=== PATIENT | male | born 1950 | race Caucasian/White ===

== ENCOUNTER 2017-02-18 15:53 | Emergency (ER) | payer MEDICARE ==
[2017-02-18 17:11] VITALS: BP 110/73
--- NOTE | 2017-02-18 17:11 | UC ---
Skin Complaint HPI - HPI Summary HPI Summary: Pt presents with c/o of URI like c/o of cough, nasal congestion and generalized malaise X 1 week. 2. c/o of tender rash on right upper thigh and right lower back that began 3 days ago. - History of Current Complaint Chief Complaint: UCSkin Time Seen by Provider: 02/18/17 16:41 Stated Complaint: COUGH,FATIGUE,SKIN COMPLAINT Hx Obtained From: Patient Onset/Duration: Gradual Onset, Lasting Days, Still Present, Worse Since - onset Skin Exposure Onset/Duration: Days Ago Timing: Constant Onset Severity: Mild Current Severity: Mild Location: Discrete - right upper thigh and lower back Character: Redness, Painful Aggravating Factor(s): Touch Alleviating Factor(s): Unknown Associated Signs & Symptoms: Positive: Rash, Tenderness - Allergy/Home Medications Allergies/Adverse Reactions: Allergies Allergy/AdvReac Type Severity Reaction Status Date / Time Codeine Allergy Intermediate FEELS VERY Verified 02/18/17 16:20 HOT, FLUSHING Penicillins Allergy Intermediate Rash Verified 02/18/17 16:20 Home Medications: Home Medications Magnesium Oxide TAB* [MagOx 400 TAB*] 400 mg PO BID 02/18/17 [History Confirmed 02/18/17] Review of Systems Constitutional: Negative Skin: Rash Eyes: Negative ENT: Other - nasal congestion Respiratory: Cough Cardiovascular: Negative Gastrointestinal: Negative Genitourinary: Negative Motor: Negative Neurovascular: Negative Musculoskeletal: Negative Neurological: Negative Psychological: Negative Is Patient Immunocompromised?: No All Other Systems Reviewed And Are Negative: Yes PMH/Surg Hx/FS Hx/Imm Hx Previously Healthy: Yes - Surgical History Surgical History: Yes Surgery Procedure, Year, and Place: Bi-lat KNEE, SHOULDER - Family History Known Family History: Positive: Cardiac Disease - Social History Occupation: Retired Lives: With Family Alcohol Use: None Substance Use Type: None Smoking Status (MU): Never Smoked Tobacco Have You Smoked in the Last Year: No - Immunization History Most Recent Influenza Vaccination: January 2017 Physical Exam Triage Information Reviewed: Yes Appearance: Well-Appearing Vital Signs: Initial Vital Signs Temp 98.6 F 02/18/17 16:17 Pulse 88 02/18/17 16:17 Resp 16 02/18/17 16:17 BP 110/73 02/18/17 16:17 Pulse Ox 98 02/18/17 16:17 Vital Signs Reviewed: Yes Eye Exam: Normal ENT Exam: Normal Dental Exam: Other Dental: Positive: Other: - multiple missing teeth Neck exam: Normal Respiratory: Positive: No respiratory distress Cardiovascular Exam: Normal Musculoskeletal Exam: Normal Neurological Exam: Normal Psychological Exam: Normal Skin Exam: Other - erythematous rash upper right thigh and lower back, pt c/o mild tenderness during exam, pt reports blisters that have erupted and drained prior to arrival. Course/Dx - Differential Diagnoses - Skin Complaint Differential Diagnoses: Allergic Reaction, Contact Dermatitis, Local Allergic Reaction, Varicella Zoster - Diagnoses Provider Diagnoses: shingles. URI Discharge - Discharge Plan Condition: Stable Disposition: HOME Prescriptions: ValACYclovir (*) [Valtrex 1 GM(*)] 1 gm PO Q8H #21 tab Patient Education Materials: Shingles (ED) Referrals: Porter Barrios MD [Primary Care Provider] - If Needed
== END 2017-02-18 17:17 | disposition home or self-care (01) ==
LOC: UCCORT 15:53
DX: J06.9 Acute upper respiratory infection, unspecified (principal); B02.9 Zoster without complications; Z88.0 Allergy status to penicillin; Z88.5 Allergy status to narcotic agent
CPT/HCPCS: 99212; G0463

== ENCOUNTER 2017-03-20 19:22 | Emergency (ER) | payer MEDICARE ==
--- OUTSIDE RECORDS SUMMARY | 2017-03-20 19:35 | XMS REPORT ---
:1950 External Reference #:[id number] Author Organization [facility] 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 Active Onset: 05/06/2016 Joint ankylosis of the shoulder Jose Castilol M.D. Active region Onset: 02/10/2016 Pain in calf KELLY Gant Active Onset: 01/22/2016 Full thickness rotator cuff tear Jose Castillo M.D. Active Onset: 01/06/2016 Shoulder joint pain Jose Castillo M.D. Active Onset: 11/27/2014 Disorder of bursa of shoulder Jose Castillo M.D. Active region Onset: 09/26/2012 Localized, primary osteoarthritis Isai Amin M.D., Active FACS Onset: 01/07/2012 Type II diabetes mellitus Porter Barrios MD Active uncontrolled Onset: 12/30/2011 Type 2 diabetes mellitus Active Onset: 01/07/2012 Gastroesophageal reflux disease Porter Barrios MD Active Onset: 01/07/2012 Essential hypertension Porter Barrios MD Active Onset: 01/07/2012 Hyperlipidemia Porter Barrios MD Active Family History Date Family Member(s) Problem(s) Comments Father Diabetes Father Hypertension Mother Diabetes Mother Hypertension Mother Atrial Fibrillation Mother Pacemaker First Brother Diabetes Social History Type Date Description Comments Lives With Roommate Sister Diet Patient follows no dietary restrictions Occupation Disabled Cigarette Use Never Smoked Cigarettes ETOH Use Denies alcohol use Recreational Drug Use Denies Drug Use Smoking Patient has never smoked Daily Caffeine Consumes on average 4 sodas per day General Hx Text Patient lives as a female, prefers to be called Nathalie Allergies, Adverse Reactions, Alerts Date Description Reaction Status Severity Comments 09/26/2012 Codeine active 09/26/2012 Penicillin active Medications Medication Date Status Form Strength Qnty SIG Indications Ordering Provider Simvastatin 07/12 Active Tablets 40mg 90tab 1 by mouth Ring, s every day MD Porter Enalapril Maleate 06/21 Active Tablets 10mg 90tab 1 by mouth Ring, s every day MD Porter Aspirin 12/29 Active Chewtabs 81mg 1 po qd Ring, MD Porter Glimepiride Active Tablets 4mg bid Unknown /0000 Vitamin B-12 Active Tablets 500mcg Unknown /0000 Omeprazole Active Capsules 20mg 30cap 1 po qd Unknown /0000 DR marc Womens One Daily Active Tablets Unknown /0000 [employer] Active Tablets 1 /day Unknown /0000 Menopause Formula Active Tablets 1 tab by Unknown /0000 mouth at night Magnesium Active Tablets 400mg 1 by mouth Unknown /0000 bid Oxycodone HCL 06/03 Hx Tablets 5mg 50tab 1-2 every M75.122 Jose /2016 s 4-6 hour as Anna, - needed pain M.D. 08/24 Oxycodone-Acetamin 03/10 Hx Tablets 5-325mg 30tab 1 by mouth M75.122 Jose mart s every 6 Anna, - hours as M.D. 06/03 needed pain Oxycodone HCL 01/27 Hx Tablets 10mg 50tab 1 by mouth M75.122 s every 3 Anna, - hour as M.D. 03/10 postop pain Vitamin B-12 ER 12/29 Hx Tablets 1000mcg 90tab 1 po qd Ring, ER monico Buenrostro MD - 10/02 Hydrochlorothiazid Hx Tablets 25mg 30tab 1 po qd Unknown e /0000 s - 10/02 Enalapril Maleate Hx Tablets 2.5mg 1 by mouth Unknown /0000 at bedtime - 10/02 Simvastatin Hx Tablets 20mg 90tab 1 po qd Unknown / s - 10/02 Aspirin Ec Hx Tablets 81mg 1 po qd Unknown / DR - 10/02 Phenazopyridine Hx Tablets Unknown HCL - 04/01 Ibuprofen Hx Tablets 200mg as needed Unknown 0000 - 06/04 Magnesium Hx Capsules 400mg 1 by mouth Unknown / tid Stool Softener Hx Capsules 100mg take 1 Unknown capsule by mouth twice daily as needed for constipatio n Medications Administered in Office Medication Date Status Form Strength Qnty SIG Indications Ordering Provider Depomedrol 80 Administered Injection Hayde S. mg 015 LOIS Stewart Vital Signs Date Vital Result Comment 03/17/2017 BP Systolic 154 mmHg BP Diastolic 78 mmHg Body Temperature 98.1 F Heart Rate 105 /min Respiratory Rate 16 /min Height 69 inches 5'9" Weight 160.00 lb BMI (Body Mass Index) 23.6 kg/m2 BSA (Body Surface Area) 1.88 m2 [place] body weight in kilograms 73 02/17/2017 BP Systolic 129 mmHg BP Diastolic 72 mmHg Body Temperature 99.1 F Heart Rate 109 /min Respiratory Rate 15 /min Height 70 inches 5'10" Weight 160.00 lb BMI (Body Mass Index) 23.0 kg/m2 BSA (Body Surface Area) 1.90 m2 [place] body weight in kilograms 75 06/03/2016 BP Systolic 161 mmHg 132/91 BP Diastolic 96 mmHg 132/91 Body Temperature 98.1 F Heart Rate 101 /min Height 67.5 inches 5'7.50" Weight 180.00 lb BMI (Body Mass Index) 27.8 kg/m2 BSA (Body Surface Area) 1.94 m2 [place] body weight in kilograms 68 01/28/2016 BP Systolic Sitting Right Arm 138 mmHg BP Diastolic Sitting Right Arm 70 mmHg Height 67 inches 5'7" Weight 171.00 lb BMI (Body Mass Index) 26.8 kg/m2 BSA (Body Surface Area) 1.89 m2 [place] body weight in kilograms 67 12/07/2014 BP Systolic 154 mmHg BP Diastolic 83 mmHg Heart Rate 99 /min Height 69 inches 5'9" Weight 178.00 lb BMI (Body Mass Index) 26.3 kg/m2 BSA (Body Surface Area) 1.97 m2 11/27/2014 BP Systolic 130 mmHg BP Diastolic 85 mmHg Heart Rate 86 /min Weight 170.50 lb O2 % BldC Oximetry 96 % 10/02/2014 BP Systolic Sitting Left Arm 143 mmHg BP Diastolic Sitting Left Arm 84 mmHg Height 68.75 inches 5'8.75" Weight 182.00 lb BMI (Body Mass Index) 27.1 kg/m2 BSA (Body Surface Area) 1.98 m2 09/26/2012 BP Systolic Sitting Left Arm 122 mmHg BP Diastolic Sitting Left Arm 70 mmHg Height 68.75 inches 5'8.75" Weight 190.00 lb BMI (Body Mass Index) 28.3 kg/m2 BSA (Body Surface Area) 2.02 m2 Results Test Date Test Result H/L Range Note Laboratory test finding 01/30/2016 Glucose,Bedside 148 mg/dL High 70-110 1, 2 CBC 09/26/2015 White Blood Count 8.2 K/uL 3.4-10.5 Red Blood Count 3.40 M/uL Low 4.20-5.80 Hemoglobin 11.3 gm/dL Low 12.8-17.0 Hematocrit 33.8 % Low 38.0-48.0 Mean Cell Volume 99.4 fl High 80.0-96.0 Mean Corpuscular HGB 33.2 pg High 27.0-33.0 Mean Corpuscular HGB Conc 33.4 g/dL 31.7-36.0 Platelet Count 200 K/uL 150-400 Red Cell Distri Width %CV 13.4 % 11.6-15.8 Mean Platelet Volume 9.0 fL 6.6-10.6 Laboratory test finding 09/26/2015 Magnesium 1.4 mg/dL Low 1.8-2.4 Comprehensive Metabolic Panel 09/26/2015 Glucose 253 mg/dL High 74-106 BUN 25 mg/dL High 7-18 Creatinine 1.5 mg/dL High 0.6-1.3 Glom Filtration Rate, Estimate 50 mL/min >60 If >60 mL/min >60 3 BUN/Creat 16.6 ratio Sodium 136 mmol/L 136-145 Potassium 3.6 mmol/L 3.5-5.1 Chloride 101 mmol/L 98-107 Carbon Dioxide 27 mmol/L 21-32 Anion Gap 8 mEq/L 8-16 Calcium 9.0 mg/dL 8.5-10.1 Total Protein 7.9 g/dL 6.4-8.2 Albumin 4.2 g/dL 3.4-5.0 Globulin 3.7 g/dL 1.9-4.3 Alb/Glob 1.1 ratio Bilirubin,Total 1.3 mg/dL High 0.2-1.0 Sgot/Ast 28 U/L 15-37 SGPT/Alt 34 U/L 12-78 Alkaline Phosphatase 100 U/L 45-117 Basic Metabolic Panel 12/10/2014 Glucose 279 mg/dL High 74-106 BUN 14 mg/dL 7-18 Creatinine 1.3 mg/dL 0.6-1.3 Glom Filtration Rate, Estimate 59 mL/min >60 If >60 mL/min >60 4 BUN/Creat 10.7 ratio Sodium 137 mmol/L 136-145 Potassium 4.0 mmol/L 3.5-5.1 Chloride 104 mmol/L 98-107 Carbon Dioxide 29 mmol/L 21-32 Anion Gap 4 mEq/L Low 8-16 Calcium 9.1 mg/dL 8.5-10.1 CBC 12/10/2014 White Blood Count 5.8 K/uL 3.4-10.5 Red Blood Count 4.00 M/uL Low 4.20-5.80 Hemoglobin 13.3 gm/dL 12.8-17.0 Hematocrit 38.3 % 38.0-48.0 Mean Cell Volume 95.8 fl 80.0-96.0 Mean Corpuscular HGB 33.3 pg High 27.0-33.0 Mean Corpuscular HGB Conc 34.7 g/dL 31.7-36.0 Platelet Count 213 K/uL 150-400 Red Cell Distri Width %CV 12.2 % 11.6-15.8 Mean Platelet Volume 9.4 fL 6.6-10.6 Urine Screen 12/10/2014 Urine Color YELLOW Yellow Urine Clarity CLEAR Clear Urine Glucose - Dipstick >=1000 mg/dL High Negative Urine Bilirubin - Dipstick NEGATIVE Negative Urine Ketone NEGATIVE mg/dL Negative Urine Specific [place] 1.010 1.010-1.030 Urine Blood NEGATIVE Negative Urine PH 6.0 Low 6.5-7.5 Urine Protein - Dipstick 30 mg/dL High Negative Urine Urobilinogen - Dipstick 0.2 E.U./dL 0.2-1.0 Urine Nitrite - Dipstick NEGATIVE Negative Urine Leuk Esterase NEGATIVE Negative Laboratory test finding 09/17/2014 BUN/Creatinine Ratio 15.6 6-22 5 Calcium 11.3 mg/dL High 8.6-10.3 5 Carbon Dioxide 30 mmol/L 19-30 5 Chloride 99 mmol/L 98-110 5 Cholesterol 143 mg/dL 125-200 5 Creatine Kinase,Total 96 U/L 44-196 5 Creatinine 1.41 mg/dL High 0.70-1.25 5, 6 Direct LDL 78 mg/dL <130 5, 7 Glucose 136 mg/dL High 65-99 5, 8 Hemoglobin A1c 7.9 % High 0.0-5.6 5, 9 Potassium 4.0 mmol/L 3.5-5.3 5 Sodium 140 mmol/L 135-146 5 Urea Nitrogen 22 mg/dL 7-25 5 1 CONSULT 01/26 M75.102 [id number] 90201 2 Charting This Result Notify Physician 3 Note: Persistent reduction for 3 months or more in an eGFR <60 mL/min/1.73 m2 defines CKD. Patients with eGFR values >/=60 mL/min/1.73 m2 may also have CKD if evidence of persistent proteinuria is present. The original MDRD equation for estimated GFR is not valid for patients less than 18 years of age. Additional information may be found at www.kdoqi.org. 4 Note: Persistent reduction for 3 months or more in an eGFR <60 mL/min/1.73 m2 defines CKD. Patients with eGFR values >/=60 mL/min/1.73 m2 may also have CKD if evidence of persistent proteinuria is present. The original MDRD equation for estimated GFR is not valid for patients less than 18 years of age. Additional information may be found at www.kdoqi.org. 5 FASTING 6 The upper reference limit for Creatinine is approximately 13% higher for people identified as -[place]gian. 7 LDL-CHOLESTEROL RISK CATEGORY* GOAL VERY HIGH (E.G. DIABETES + CVD) <70 MG/DL HIGH (DIABETICS; CHD RISK EQUIVALENTS) <100 MG/DL MODERATELY HIGH (MULTIPLE(2+) RISK FACTORS) <130 MG/DL 0 TO 1 RISK FACTORS <160 MG/DL * NCEP REPORT. CIRCULATION 2004; 110: 227-239 8 GLUCOSE REFERENCE RANGE BASED ON FASTING SPECIMEN. 9 According to ADA guidelines, hemoglobin A1c <7.0% represents optimal control in non- diabetic patients. Different metrics may apply to specific patient populations. Standards of Medical Care in Diabetes-2013. Diabetes Care. 2013;36:s11-s66 For the purpose of screening for the presence of diabetes: A1C VALUE INTERPRETATION <5.7% Consistent with the absence of diabetes 5.7 - 6.4% Consistent with increased risk for diabetes (prediabetes) > or=6.5% Consistent with diabetes Currently, no consensus exists regarding use of hemoglobin A1C for diagnosis of diabetes in children. Procedures Date CPT Code Description Status 02/17/2017 37248 Radiology, Distal Femur--Knee 1 Or 2 Views Completed 02/17/2017 23559 Radiology, Distal Femur--Knee 1 Or 2 Views Completed 06/11/2016 20996 Manipulation Shoulder W/Anesthesia W/Applic Fix Completed Apparatus 06/11/2016 30986 Asp./Injection major joint Completed 01/30/2016 48455 Repair of ruptured musculotendinous (rotator cuff) open Completed 01/30/2016 57701 Claviculectomy;partial open Completed 12/10/2014 86751 EKG Interpretation And Report Only Completed 10/02/2014 39763 Radiology, Shoulder: Two Views (Sso) Completed 10/02/2014 31346 Radiology, Shoulder: Two Views (Sso) Completed 10/02/2014 51727 Asp./Injection major joint Completed 09/26/2012 92129 Radiology, Knee 3 Views Completed 09/26/2012 82197 Radiology, Knee 3 Views Completed 09/21/2012 42332 Stress Test Interpre And Report Only Completed 09/21/2012 32983 Stress Test Physician Super Only Completed 09/21/2012 52422 Stress Test Physician Super Only Completed Encounters Type Date Location Provider CPT E/M Dx Office Visit 12/30/2016 9[facility]a [facility] Jose Castillo M.D. 94973 M75.122 Office Visit 08/24/2016 9:00a [facility] Jose Castillo M.D. 96917 Z01.818 Office Visit 07/15/2016 9:45a [facility] Jose Castillo M.D. 45604 M24.612 M75.122 Office Visit 06/22/2016 9:00a [facility] KELLY Gant 16635 M24.612 M75.122 Office Visit 05/06/2016 9:30a [facility] Jose Castillo M.D. 20438 M75.122 M24.612 Office Visit 01/22/2016 10:15a [facility] Jose Castillo M.D. 52757 M75.122 M19.011 Office Visit 01/06/2016 1:45p [facility] Jose Castillo M.D. 14807 M75.102 M25.512 Office Visit 11/27/2014 10:00a [facility] Jose Castillo M.D. 21089 M75.102 M19.011 Office Visit 11/12/2014 10:30a [facility] Hayde Stewart 86023 727.61 RPAC 726.10 719.41 Office Visit 10/02/2014 1:45p [facility] Hayde Stewart 87871 719.41 RPAC 726.10 Office Visit 09/26/2012 10:00a [facility] Isai Amin 14344 719.46 Trey, [facility] 715.16 Plan of Care Future Appointment(s):04/29/2017 7:30 am - Jose Castillo M.D. at Operating Room05/07/2017 10:30 am - KELLY Gant at [facility] Xdkuvo5604/20/2017 2: 30 pm - KELLY Gant at [facility] Qcvdtp0603/17/2017 - Jose Castillo M.D.M25.561 Pain in right kneeM25.512 Pain in left shoulder
--- OUTSIDE RECORDS SUMMARY | 2017-03-20 19:37 | XMS REPORT ---
:1950 External Reference #:[id number] Author Organization [facility] [employer] Address [address] [place] [address] Phone [phone] Care Team Providers Name Role Phone Porter Barrios MD Primary Care Physician Unavailable Payers Type Date Identification Numbers Payment Provider Subscriber Medicare Primary Policy Number: [id number] Medicare Pavan Cunningham PayID: [id number] [address] [place] [address] [facility] Part B Policy Number: [id number] [facility] Medicaid Pavan Cunningham Group Name: 1 1 [address] PayID: [id number] [place] [address] Problems Date Description Provider Status Onset: 12/30/2011 Type 2 diabetes mellitus Active Onset: 01/07/2012 Type II diabetes mellitus uncontrolled Porter Barrios MD Active Onset: 01/07/2012 Hyperlipidemia Porter Barrios MD Active Onset: 01/07/2012 Essential hypertension Porter Barrios MD Active Onset: 01/07/2012 Gastroesophageal reflux disease Porter Barrios MD Active Onset: 01/07/2012 [employer] Porter Barrios MD Active Family History Date Family Member(s) Problem(s) Comments General Diabetes Mellitus, II General Heart Disease General Atrial Fibrillation Father due to Natural Causes () Mother Hyperlipidemia Mother Arthritis Mother Atrial Fibrillation Mother Diabetes Mellitus, II Social History Type Date Description Comments Marital Status Legal Status: Never Lives With Alone ETOH Use Denies alcohol use Smoking Patient has never smoked Recreational Drug Use Denies Drug Use Currently Active Patient is currently sexually active Allergies, Adverse Reactions, Alerts Date Description Reaction Status Severity Comments 12/30/2011 Codeine active p 12/30/2011 Penicillin active Medications Medication Date Status Form Strength Qnty SIG Indications Ordering Provider Valacyclovir HCL 02/22 Active Tablets 1gm 90tab 1 by Jared monico Barrios MD every 8 hours Magnesium Oxide 10/06 Active Capsules 400mg 90cap tab 1 by Jared monico Barrios MD every at bedtime as needed muslce cramps Blood Pressure 04/08 Active as Porter Monitor nydia Barrios MD for HTN Glimepiride 04/12 Active Tablets 4mg 180ta take 1 bs tablet by MD Sophie mouth twice daily with meals Omeprazole 09/18 Active Capsules 20mg 90cap [address] monico Barrios MD every day Simvastatin 07/12 Active Tablets 40mg 90tab 1 by Jared monico Barrios MD every day Enalapril Maleate 06/21 Active Tablets 10mg 90tab 1 by Porter monico Barrios MD every day Freestyle Lite Blood 06/14 Active Device 1unit as Rita Glucose Monitoring s directed Eliza, System to be M.D. done every day and as needed dx 250.02 Freestyle Lite Test 06/14 Active Strips 200un to test Rita Strips its every day Gauss, and as M.D. needed up to four times a day dx e11.65 Lancets 30G 06/14 Active Misc 30G 200un as Rita its directed Gauss, every day M.D. for glucose monitorin g. dx 250.02 Aspirin 12/29 Active Chewtabs 81mg 1 po qd MD Sophie Vitamin B-12 CR 12/29 Active Tablets 1000mcg 90tab 1 po qd ER monico Barrios MD Ibuprofen Active Tablets 200mg 1 by Unknown /0000 mouth every 6 hours as needed for headache or muscle pain Tylenol Extra Active Tablets 500mg Unknown Strength /0000 Ibuprofen PM 00 Active Tablets 200-38mg Unknown /0000 Azithromycin 05/19 Hx Tablets 250mg 6tabs 2 by Jared zohreh Barrios MD - today, 1 07/03 by mouth day 2 thru 5 Docusate Sodium 04/08 Hx Capsules 100mg 120ca 1 by Jared ps zohreh Barrios MD - twice a Methocarbamol 09/26 Hx Tablets 500mg 90tab Tab 1 PO s tid prn MD Sophie - Muscle 07/03 Cramps One Daily 09/08 Hx Tablets 90tab 1 tab po s qd Ring, - 07/03 Ranitidine HCL 02/28 Hx Capsules 150mg 90cap 1 by s mouth a Ring, MD - day 09/18 Blood Pressure Meter 01/26 Hx check Rita blood Gauss, - pressure M.D. 07/03 twice A day Truetest Strips 06/13 Hx Strips 200un to test its qd and Gauss, - prn up to M.D. 06/14 4 times daily Enalapril Maleate 04/25 Hx Tablets 5mg 90tab 1 po qd s Ring, - 06/21 Methocarbamol 03/07 Hx Tablets 500mg 60tab take Bid s prn Ring, - 04/25 Skelaxin 03/06 Hx Tablets 800mg 20tab 1 po bid s prn Ring, - Muslce 04/25 True Results Testing 06/08 Hx Strips 200un as Elyn Strips its directed MD Sophie - up to qid 06/14 dx 250. Glimepiride 03/03 Hx Tablets 2mg 580ta 2 tab by bs mouth Ring, - three 04/12 times day with meals Enalapril Maleate 03/03 Hx Tablets 2.5mg 90tab tab 1 po s q hs MD Sophie - 04/25 Trueresults Blood 01/19 Hx Elyn Glucose MD Sophie - 06/08 Trueresult Testing 01/19 Hx 200un As Elyn Strips its dorected MD Sophie - bid for 06/08 dx 250.00 Trueresults Lancets 01/19 Hx 200un as Elyn its directed RingMD - for fs 06/14 testing bid Dx of 250.00 Omeprazole 01/06 Hx Capsules 20mg 90cap [address] monico Barrios MD - 02/28 Accu-Chek Compact 01/06 Hx Strips 200un As Elyn Plus um its directed MD Sophie - bid dx 01/06 250. Free Style Lite Test 01/06 Hx 200un us as yn its directed MD Sophie - bid and 01/19 prn Hydrochlorothiazide 12/29 Hx Tablets 25mg 90tab 1 po qd s Ring, - 04/25 Simvastatin 12/29 Hx Tablets 20mg 100ta 1 po qd bs RingMD - 07/12 Pantoprazole Sodium 12/29 Hx Tablets 40mg 90tab [address] monico Barrios MD - 01/06 Metformin HCL 12/29 Hx Tablets 500mg 90tab 1 po qhs s RingMD - 02/01 Glimepiride 12/29 Hx Tablets 1mg 180ta tab 1 po bs q bid MD Sophie - with food 03/03 Alprazolam Hx Tablets 0.25mg 1 by Unknown /0000 mouth - three 09/26 times day as needed anxiety Magnesium Oxide Hx Capsules 400mg 90cap tab 1 by Elyn /0000 s mouth MD Sophie - three 07/03 times day as needed muscle spams Oxycodone-Acetaminop Hx Solution 5-325mg/5 Unknown hen /0000 ML - 02/22 Immunizations CPT Code Status Date Vaccine Lot # [id number] Given 01/29/2017 Influenza Virus (Afluria) Split Virus 3 Years Of [id number] Age And Older Q2037 Given 12/06/2015 Influenza Vaccine (Fluvirin) 4 Years Of Age Or [id number] Older Q2037 Given 01/15/2015 Influenza Vaccine (Fluvirin) 4 Years Of Age Or [id number] Older Q2037 Given 11/23/2013 Influenza Vaccine (Fluvirin) 3 Years Of Age Or Older Q2035 Given 01/12/2013 Influenza Virus (Afluria) Split Virus 3 Years Of Age And Older Q2035 Given 01/12/2013 Influenza Virus (Afluria) Split Virus 3 Years Of Age And Older [id number] Given 01/07/2012 Pneumovax Polyvalent Inj Im Vital Signs Date Vital Result Comment 02/22/2017 BP Systolic 128 mmHg BP Diastolic 6860 mmHg Heart Rate 68 /min Respiratory Rate 18 /min 01/29/2017 BP Systolic 120 mmHg BP Diastolic 70 mmHg Weight 169.00 lb 10/06/2016 BP Systolic 118 mmHg BP Diastolic 80 mmHg Height 70 inches 5'10" Weight 186.00 lb BMI (Body Mass Index) 26.7 kg/m2 07/03/2016 BP Systolic 156 mmHg BP Diastolic 82 mmHg Height 70 inches 5'10" Weight 184.00 lb BMI (Body Mass Index) 26.4 kg/m2 05/19/2016 BP Systolic 110 mmHg BP Diastolic 68 mmHg Body Temperature 97.3 F 05/19/2016 Body Temperature 97.3 F 05/19/2016 BP Systolic 110 mmHg BP Diastolic 68 mmHg 05/19/2016 BP Systolic 128 mmHg BP Diastolic 70 mmHg Body Temperature 98.4 F Height 70 inches 5'10" 04/08/2016 BP Systolic 150 mmHg BP Diastolic 80 mmHg Height 70 inches 5'10" Weight 178.00 lb BMI (Body Mass Index) 25.5 kg/m2 12/06/2015 BP Systolic 136 mmHg BP Diastolic 70 mmHg Height 70 inches 5'10" Weight 175.00 lb BMI (Body Mass Index) 25.1 kg/m2 09/27/2015 BP Systolic 140 mmHg BP Diastolic 80 mmHg 04/12/2015 BP Systolic 150 mmHg BP Diastolic 80 mmHg Height 70 inches 5'10" Weight 178.00 lb BMI (Body Mass Index) 25.5 kg/m2 01/15/2015 BP Systolic 130 mmHg BP Diastolic 84 mmHg Height 70 inches 5'10" Weight 172.00 lb BMI (Body Mass Index) 24.7 kg/m2 09/26/2014 BP Systolic 140 mmHg BP Diastolic 92 mmHg Height 70 inches 5'10" Weight 180.00 lb BMI (Body Mass Index) 25.8 kg/m2 06/21/2014 BP Systolic 160 mmHg BP Diastolic 90 mmHg Height 70 inches 5'10" Weight 182.00 lb BMI (Body Mass Index) 26.1 kg/m2 03/14/2014 BP Systolic 146 mmHg BP Diastolic 82 mmHg Height 71 inches 5'11" Weight 177.00 lb BMI (Body Mass Index) 24.7 kg/m2 02/28/2014 BP Systolic 132 mmHg BP Diastolic 80 mmHg 11/23/2013 BP Systolic 138 mmHg BP Diastolic 72 mmHg Height 69 inches 5'9" Weight 180.00 lb BMI (Body Mass Index) 26.6 kg/m2 08/17/2013 BP Systolic 128 mmHg BP Diastolic 80 mmHg Height 69 inches 5'9" Weight 186.00 lb BMI (Body Mass Index) 27.5 kg/m2 04/25/2013 BP Systolic 150 mmHg BP Diastolic 78 mmHg Height 69 inches 5'9" Weight 176.00 lb BMI (Body Mass Index) 26.0 kg/m2 03/28/2013 BP Systolic 120 mmHg BP Diastolic 78 mmHg 03/06/2013 BP Systolic 126 mmHg BP Diastolic 80 mmHg 01/25/2013 BP Systolic 154 mmHg BP Diastolic 70 mmHg 01/17/2013 BP Systolic 102 mmHg BP Diastolic 64 mmHg Height 69 inches 5'9" Weight 177.00 lb BMI (Body Mass Index) 26.1 kg/m2 09/19/2012 BP Systolic 130 mmHg BP Diastolic 70 mmHg Height 69 inches 5'9" Weight 190.00 lb BMI (Body Mass Index) 28.1 kg/m2 06/09/2012 BP Systolic 130 mmHg BP Diastolic 84 mmHg Height 69 inches 5'9" Weight 193.00 lb BMI (Body Mass Index) 28.5 kg/m2 03/03/2012 BP Systolic 138 mmHg BP Diastolic 88 mmHg 03/03/2012 BP Systolic 162 mmHg BP Diastolic 90 mmHg 02/18/2012 BP Systolic 130 mmHg BP Diastolic 72 mmHg 02/02/2012 BP Systolic 122 mmHg BP Diastolic 76 mmHg Height 68 inches 5'8" Weight 188.00 lb BMI (Body Mass Index) 28.6 kg/m2 01/07/2012 BP Systolic 120 mmHg BP Diastolic 90 mmHg Height 68 inches 5'8" Weight 182.00 lb BMI (Body Mass Index) 27.7 kg/m2 Results Test Date Test Result H/L Range Note Basic Metabolic Panel 01/18/2017 Sodium 144 mmol/L 135-146 1 Potassium 4.2 mmol/L 3.5-5.3 1 Chloride 107 mmol/L 98-110 1 Carbon Dioxide 31 mmol/L 20-31 1 Calcium 9.3 mg/dL 8.6-10.3 1 Glucose 171 mg/dL High 65-99 1, 2 Urea Nitrogen (BUN) 13 mg/dL 7-25 1 Creatinine 1.02 mg/dL 0.70-1.25 1, 3 BUN/Creatinine Ratio 12.8 6-22 1 Egfr Non-Afr. Belarusian 77 ML/MIN/1.73M2 > Or=60 1 Egfr 89 ML/MIN/1.73M2 > Or=60 1 Laboratory test finding 01/18/2017 Cholesterol 157 mg/dL <199 1 Hepatic Function Panel 01/18/2017 Alkaline Phosphatase 88 U/L 40-115 1 Ast 17 U/L 10-35 1 Alt 13 U/L 9-46 1 Bilirubin,Total 0.8 mg/dL 0.2-1.2 1 Bilirubin,Direct 0.2 mg/dL < Or=0.2 1 Protein,Total 6.3 g/dL 6.1-8.1 1 Albumin 4.2 g/dL 3.6-5.1 1 Globulin,Calculated 2.1 g/dL 1.9-3.7 1 A/G Ratio 2.0 1.0-2.5 1 Laboratory test finding 01/18/2017 Creatine Kinase,Total 83 U/L 44-196 1 Hemoglobin A1c 5.1 % 0-5.6 1, 4 General Health Panel 09/28/2016 TSH 1.26 mIU/L 0.40-4.50 1 T4,Free 1.2 ng/dL 0.8-1.8 1 CBC W/ Diff & PLT 09/28/2016 WBC 5.7 thous/L 3.8-10.8 1 RBC 3.70 mill/L Low 4.20-5.80 1 Hemoglobin 11.7 g/dL Low 13.2-17.1 1 Hematocrit 36.3 % Low 38.5-50.0 1 MCV 98.1 FL 80.0-100.0 1 MCH 31.5 pg 27.0-33.0 1 MCHC 32.2 g/dL 32.0-36.0 1 RDW 14.0 % 11.0-15.0 1 Platelet Count 203 thous/L 140-400 1 Platelet Sufficiency PENDING 1 MPV 7.8 FL 7.5-12.5 1 Neutrophils,Absolute 3750 cells/L 3434-6211 1 Bands,Absolute PENDING 1 Metamyelocytes,Absolute PENDING 1 Myelocytes,Absolute PENDING 1 Promyelocytes,Absolute PENDING 1 Lymphocytes,Absolute 1420 cells/L 850-3900 1 Monocytes,Absolute 340 cells/L 200-950 1 Eosinophils,Absolute 140 cells/L 15-500 1 Basophils,Absolute 30 cells/L 0-200 1 Blast Cells,Absolute PENDING 1 Nucleated RBC,Absolute PENDING 1 Total Neutrophils,% 66 % 40-75 1 Bands,% PENDING 1 Metamyelocytes,% PENDING 1 Myelocytes,% PENDING 1 Promyelocytes,% PENDING 1 Total Lymphocytes,% 25 % 12-47 1 Monocytes,% 6 % 4-12 1 Eosinophils,% 2 % 0-4 1 Basophils,% 1 % 0-1 1, 5 Blasts,% PENDING 1 Nucleated RBC PENDING 1 RBC Morphology PENDING 1 Anisocytosis PENDING 1 Poikilocytosis PENDING 1 Microcytosis PENDING 1 Macrocytosis PENDING 1 Polychromasia PENDING 1 Hypochromasia PENDING 1 Target Cells PENDING 1 Basophilic Stippling PENDING 1 Comment PENDING 1 Laboratory test finding 09/28/2016 Cholesterol 151 mg/dL 125-200 1 Hepatic Function Panel 09/28/2016 Alkaline Phosphatase 102 U/L 40-115 1 Ast 18 U/L 10-35 1 Alt 21 U/L 9-46 1 Bilirubin,Total 1.2 mg/dL 0.2-1.2 1 Bilirubin,Direct 0.3 mg/dL High < Or=0.2 1 Protein,Total 7.0 g/dL 6.1-8.1 1 Albumin 4.7 g/dL 3.6-5.1 1 Globulin,Calculated 2.3 g/dL 1.9-3.7 1 A/G Ratio 1.9 1.0-2.5 1 Laboratory test finding 09/28/2016 Creatine Kinase,Total 113 U/L 44-196 1 Hemoglobin A1c 7.5 % High 0-5.6 1, 6 PSA,Total 0.9 NG/ML < Or=4.0 1, 7 Comp Metabolic Panel 09/28/2016 Sodium 140 mmol/L 135-146 1 Potassium 3.5 mmol/L 3.5-5.3 1 Chloride 103 mmol/L 98-110 1 Carbon Dioxide 29 mmol/L 20-31 1 Calcium 9.8 mg/dL 8.6-10.3 1 Alkaline Phosphatase 102 U/L 40-115 1 Ast 18 U/L 10-35 1 Alt 21 U/L 9-46 1 Bilirubin,Total 1.2 mg/dL 0.2-1.2 1 Glucose 276 mg/dL High 65-99 1, 8 Urea Nitrogen 12 mg/dL 7-25 1 Creatinine 1.07 mg/dL 0.70-1.25 1, 9 BUN/Creatinine Ratio 11.2 6-22 1 Protein,Total 7.0 g/dL 6.1-8.1 1 Albumin 4.7 g/dL 3.6-5.1 1 Globulin,Calculated 2.3 g/dL 1.9-3.7 1 A/G Ratio 1.9 1.0-2.5 1 Egfr Non-Afr. Bel[place]ian 73 ML/MIN/1.73M2 > Or=60 1 Egfr 85 ML/MIN/1.73M2 > Or=60 1 Basic Metabolic Panel 06/24/2016 Sodium 138 mmol/L 135-146 1 Potassium 4.1 mmol/L 3.5-5.3 1 Chloride 102 mmol/L 98-110 1 Carbon Dioxide 27 mmol/L 20-31 1 Calcium 9.8 mg/dL 8.6-10.3 1 Glucose 179 mg/dL High 65-99 1, 10 Urea Nitrogen 29 mg/dL High 7-25 1 Creatinine 1.12 mg/dL 0.70-1.25 1, 11 BUN/Creatinine Ratio 25.8 High 6-22 1 Egfr Non-Afr. [place]ian 69 ML/MIN/1.73M2 > Or=60 1 Egfr 80 ML/MIN/1.73M2 > Or=60 1 Laboratory test finding 06/24/2016 Creatine Kinase,Total 138 U/L 44-196 1 Hepatic Function Panel 06/24/2016 Alkaline Phosphatase 84 U/L 40-115 1 Ast 18 U/L 10-35 1 Alt 22 U/L 9-46 1 Bilirubin,Total 1.1 mg/dL 0.2-1.2 1 Bilirubin,Direct 0.2 mg/dL < Or=0.2 1 Protein,Total 7.4 g/dL 6.1-8.1 1 Albumin 4.5 g/dL 3.6-5.1 1 Globulin,Calculated 2.9 g/dL 1.9-3.7 1 A/G Ratio 1.5 1.0-2.5 1 Lipid Panel 06/24/2016 Cholesterol 197 mg/dL 125-200 1 HDL Cholesterol 64 mg/dL > Or=40 1 Cholesterol/HDL Ratio 3.1 < Or=5.0 1 LDL Chol,Calculated 117 mg/dL <130 1, 12 Triglycerides 78 mg/dL <150 1 Non-HDL Cholesterol 133 mg/dL 1, 13 Laboratory test finding 06/24/2016 Hemoglobin A1c 9.3 % High 0.0-5.6 1, 14 Lipid Panel 04/01/2016 Cholesterol 181 mg/dL 125-200 1 HDL Cholesterol 85 mg/dL > Or=40 1 Cholesterol/HDL Ratio 2.1 < Or=5.0 1 LDL Chol,Calculated 85 mg/dL <130 1, 15 Triglycerides 53 mg/dL <150 1 Non-HDL Cholesterol 96 mg/dL 1, 16 Hepatic Function Panel 04/01/2016 Alkaline Phosphatase 102 U/L 40-115 1 Ast 13 U/L 10-35 1 Alt 12 U/L 9-46 1 Bilirubin,Total 0.4 mg/dL 0.2-1.2 1 Bilirubin,Direct 0.1 mg/dL < Or=0.2 1 Protein,Total 7.2 g/dL 6.1-8.1 1 Albumin 4.2 g/dL 3.6-5.1 1 Globulin,Calculated 3.0 g/dL 1.9-3.7 1 A/G Ratio 1.4 1.0-2.5 1 Laboratory test finding 04/01/2016 Creatine Kinase,Total 77 U/L 44-196 1 Magnesium 1.6 mg/dL 1.5-2.5 1 Basic Metabolic Panel 04/01/2016 Sodium 142 mmol/L 135-146 1 Potassium 3.8 mmol/L 3.5-5.3 1 Chloride 104 mmol/L 98-110 1 Carbon Dioxide 28 mmol/L 20-31 1 Calcium 9.5 mg/dL 8.6-10.3 1 Glucose 127 mg/dL High 65-99 , 17 Urea Nitrogen 12 mg/dL 7-25 1 Creatinine 0.97 mg/dL 0.70-1.25 , 18 BUN/Creatinine Ratio 11.9 6-22 1 Egfr Non-Afr. [place]ian 82 ML/MIN/1.73M2 > Or=60 1 Egfr 95 ML/MIN/1.73M2 > Or=60 1 Laboratory test finding 01/30/2016 Glucose,Bedside 148 mg/dL High 70-110 19, 20 Basic Metabolic Panel 11/28/2015 Sodium 141 mmol/L 135-146 Potassium 3.7 mmol/L 3.5-5.3 Chloride 106 mmol/L 98-110 Carbon Dioxide 27 mmol/L 20-31 Calcium 9.4 mg/dL 8.6-10.3 Glucose 144 mg/dL High 65-99 21 Urea Nitrogen 22 mg/dL 7-25 Creatinine 0.93 mg/dL 0.70-1.25 22 BUN/Creatinine Ratio 23.8 High 6-22 Egfr Non-Afr. [place]ian 86 ML/MIN/1.73M2 > Or=60 Egfr 100 ML/MIN/1.73M2 > Or=60 Laboratory test finding 11/28/2015 Hemoglobin A1c 5.9 % High 0.0-5.6 23 Lipid Panel 11/28/2015 Cholesterol 143 mg/dL 125-200 HDL Cholesterol 64 mg/dL > Or=40 Cholesterol/HDL Ratio 2.2 < Or=5.0 LDL Chol,Calculated 68 mg/dL <130 24 Triglycerides 54 mg/dL <150 Non-HDL Cholesterol 78 mg/dL 25 Comprehensive Metabolic Panel 09/26/2015 Glucose 253 mg/dL High 74-106 BUN 25 mg/dL High 7-18 Creatinine 1.5 mg/dL High 0.6-1.3 Glom Filtration Rate, Estimate 50 mL/min >60 If >60 mL/min >60 26 BUN/Creat 16.6 ratio Sodium 136 mmol/L 136-145 Potassium 3.6 mmol/L 3.5-5.1 Chloride 101 mmol/L 98-107 Carbon Dioxide 27 mmol/L 21-32 Anion Gap 8 mEq/L 8-16 Calcium 9.0 mg/dL 8.5-10.1 Total Protein 7.9 g/dL 6.4-8.2 Albumin 4.2 g/dL 3.4-5.0 Globulin 3.7 g/dL 1.9-4.3 Alb/Glob 1.1 ratio Bilirubin,Total 1.3 mg/dL High 0.2-1.0 Sgot/Ast 28 U/L 15-37 SGPT/Alt 34 U/L 12-78 Alkaline Phosphatase 100 U/L 45-117 Laboratory test finding 09/26/2015 Magnesium 1.4 mg/dL Low 1.8-2.4 CBC 09/26/2015 White Blood Count 8.2 K/uL [...] Volume 9.0 fL 6.6-10.6 Laboratory test finding 09/09/2015 Hemoglobin A1c 7.2 % High 0.0-5.6 27 General Health Panel 07/23/2015 TSH 1.12 mIU/L 0.40-4.50 T4,Free 0.9 ng/dL 0.8-1.8 CMP W/O Egfr 07/23/2015 Sodium 141 mmol/L 135-146 Potassium 4.1 mmol/L 3.5-5.3 Chloride 102 mmol/L 98-110 Carbon Dioxide 27 mmol/L 19-30 Calcium 10.1 mg/dL 8.6-10.3 Alkaline Phosphatase 86 U/L 40-115 Ast 21 U/L 10-35 Alt 20 U/L 9-46 Bilirubin,Total 0.9 mg/dL 0.2-1.2 Glucose 178 mg/dL High 65-99 28 Urea Nitrogen 13 mg/dL 7-25 Creatinine 1.07 mg/dL 0.70-1.25 29 BUN/Creatinine Ratio 12.0 6-22 Protein,Total 7.3 g/dL 6.1-8.1 Albumin 4.6 g/dL 3.6-5.1 Globulin,Calculated 2.7 g/dL 1.9-3.7 A/G Ratio 1.6 1.0-2.5 CBC W/ Diff & PLT 07/23/2015 WBC 5.2 thous/L 3.8-10.8 RBC 4.36 mill/L 4.20-5.80 Hemoglobin 13.6 g/dL 13.2-17.1 Hematocrit 41.6 % 38.5-50.0 MCV 95.4 FL 80.0-100.0 MCH 31.2 pg 27.0-33.0 MCHC 32.7 g/dL 32.0-36.0 RDW 13.5 % 11.0-15.0 Platelet Count 250 thous/L 140-400 Platelet Sufficiency PENDING MPV 7.6 FL 7.5-11.5 Neutrophils,Absolute 3590 cells/L 2889-6540 Bands,Absolute PENDING Metamyelocytes,Absolute PENDING Myelocytes,Absolute PENDING Promyelocytes,Absolute PENDING Lymphocytes,Absolute 1130 cells/L 850-3900 Monocytes,Absolute 300 cells/L 200-950 Eosinophils,Absolute 160 cells/L 15-500 Basophils,Absolute 20 cells/L 0-200 Blast Cells,Absolute PENDING Nucleated RBC,Absolute PENDING Total Neutrophils,% 69 % 40-75 Bands,% PENDING Metamyelocytes,% PENDING Myelocytes,% PENDING Promyelocytes,% PENDING Total Lymphocytes,% 22 % 12-47 Monocytes,% 6 % 4-12 Eosinophils,% 3 % 0-4 Basophils,% 0 % 0-1 30 Blasts,% PENDING Nucleated RBC PENDING RBC Morphology PENDING Anisocytosis PENDING Poikilocytosis PENDING Microcytosis PENDING Macrocytosis PENDING Polychromasia PENDING Hypochromasia PENDING Target Cells PENDING Basophilic Stippling PENDING Comment PENDING Lipid Panel 07/23/2015 Cholesterol 177 mg/dL 125-200 HDL Cholesterol 64 mg/dL > Or=40 Cholesterol/HDL Ratio 2.8 < Or=5.0 LDL Chol,Calculated 95 mg/dL <130 31 Triglycerides 89 mg/dL <150 Non-HDL Cholesterol 113 mg/dL 32 Hepatic Function Panel 07/23/2015 Alkaline Phosphatase 86 U/L 40-115 Ast 21 U/L 10-35 Alt 20 U/L 9-46 Bilirubin,Total 0.9 mg/dL 0.2-1.2 Bilirubin,Direct 0.2 mg/dL < Or=0.2 Protein,Total 7.3 g/dL 6.1-8.1 Albumin 4.6 g/dL 3.6-5.1 Globulin,Calculated 2.7 g/dL 1.9-3.7 A/G Ratio 1.6 1.0-2.5 Laboratory test finding 07/23/2015 PSA,Total 1.0 NG/ML < Or=4.0 33 Laboratory test finding 04/02/2015 Creatine Kinase,Total 145 U/L 44-196 34 Hepatic Function Panel 04/02/2015 Alkaline Phosphatase 108 U/L 40-115 34 Ast 17 U/L 10-35 34 Alt 16 U/L 9-46 34 Bilirubin,Total 0.5 mg/dL 0.2-1.2 34 Bilirubin,Direct 0.1 mg/dL < Or=0.2 34 Protein,Total 7.4 g/dL 6.1-8.1 34 Albumin 4.6 g/dL 3.6-5.1 34 Globulin,Calculated 2.8 g/dL 1.9-3.7 34 A/G Ratio 1.7 1.0-2.5 34 Lipid Panel 04/02/2015 Cholesterol 167 mg/dL 125-200 34 HDL Cholesterol 64 mg/dL > Or=40 34 Cholesterol/HDL Ratio 2.6 < Or=5.0 34 LDL Chol,Calculated 89 mg/dL <130 34, 35 Triglycerides 72 mg/dL <150 34 Non-HDL Cholesterol 103 mg/dL 34, 36 Laboratory test finding 04/02/2015 Hemoglobin A1c 8.1 % High 0.0-5.6 34, 37 BMP W/O Egfr 04/02/2015 Sodium 141 mmol/L 135-146 34 Potassium 3.9 mmol/L 3.5-5.3 34 Chloride 103 mmol/L 98-110 34 Carbon Dioxide 28 mmol/L 19-30 34 Calcium 9.9 mg/dL 8.6-10.3 34 Glucose 153 mg/dL High 65-99 34, 38 Urea Nitrogen 16 mg/dL 7-25 34 Creatinine 1.06 mg/dL 0.70-1.25 34, 39 BUN/Creatinine Ratio 15.1 6-22 34 BMP W/O Egfr 01/09/2015 Sodium 142 mmol/L 135-146 34 Potassium 4.1 mmol/L 3.5-5.3 34 Chloride 105 mmol/L 98-110 34 Carbon Dioxide 28 mmol/L 19-30 34 Calcium 9.5 mg/dL 8.6-10.3 34 Glucose 174 mg/dL High 65-99 34, 40 Urea Nitrogen 18 mg/dL 7-25 34 Creatinine 1.11 mg/dL 0.70-1.25 34, 41 BUN/Creatinine Ratio 16.1 6-22 34 Laboratory test finding 01/09/2015 Hemoglobin A1c 8.0 % High 0.0-5.6 34, 42 Lipid Panel 01/09/2015 Cholesterol 162 mg/dL 125-200 34 HDL Cholesterol 59 mg/dL > Or=40 34 Cholesterol/HDL Ratio 2.7 < Or=5.0 34 LDL Chol,Calculated 89 mg/dL <130 34, 43 Triglycerides 72 mg/dL <150 34 Non-HDL Cholesterol 103 mg/dL 34, 44 Hepatic Function Panel 01/09/2015 Alkaline Phosphatase 86 U/L 40-115 34 Ast 14 U/L 10-35 34 Alt 12 U/L 9-46 34 Bilirubin,Total 0.6 mg/dL 0.2-1.2 34 Bilirubin,Direct 0.1 mg/dL < Or=0.2 34 Protein,Total 7.0 g/dL 6.1-8.1 34 Albumin 4.3 g/dL 3.6-5.1 34 Globulin,Calculated 2.7 g/dL 1.9-3.7 34 A/G Ratio 1.6 1.0-2.5 34 Laboratory test finding 01/09/2015 Creatine Kinase,Total 152 U/L 44-196 34 BMP W/O Egfr 09/17/2014 Sodium 140 mmol/L 135-146 34 Potassium 4.0 mmol/L 3.5-5.3 34 Chloride 99 mmol/L 98-110 34 Carbon Dioxide 30 mmol/L 19-30 34 Calcium 11.3 mg/dL High 8.6-10.3 34 Glucose 136 mg/dL High 65-99 34, 45 Urea Nitrogen 22 mg/dL 7-25 34 Creatinine 1.41 mg/dL High 0.70-1.25 34, 46 BUN/Creatinine Ratio 15.6 6-22 34 Laboratory test finding 09/17/2014 Hemoglobin A1c 7.9 % High 0.0-5.6 34, 47 Creatine Kinase,Total 96 U/L 44-196 34 Direct LDL 78 mg/dL <130 34, 48 Cholesterol 143 mg/dL 125-200 34 Laboratory test finding 06/18/2014 Creatine Kinase,Total 102 U/L 44-196 34 Hepatic Function Panel 06/18/2014 Alkaline Phosphatase 81 U/L 40-115 34 Ast 21 U/L 10-35 34 Alt 31 U/L 9-46 34 Bilirubin,Total 0.6 mg/dL 0.2-1.2 34 Bilirubin,Direct 0.1 mg/dL < Or=0.2 34 Protein,Total 7.5 g/dL 6.1-8.1 34 Albumin 4.5 g/dL 3.6-5.1 34 Globulin,Calculated 3.0 g/dL 1.9-3.7 34 A/G Ratio 1.5 1.0-2.5 34 Lipid Panel 06/18/2014 Cholesterol 164 mg/dL 125-200 34 HDL Cholesterol 53 mg/dL > Or=40 34 Cholesterol/HDL Ratio 3.1 < Or=5.0 34 LDL Chol,Calculated 83 mg/dL <130 34, 49 Triglycerides 139 mg/dL <150 34 Non-HDL Cholesterol 111 mg/dL 34, 50 Laboratory test finding 06/18/2014 Hemoglobin A1c 7.6 % High 0.0-5.6 34, 51 BMP W/O Egfr 06/18/2014 Sodium 143 mmol/L 135-146 34 Potassium 4.1 mmol/L 3.5-5.3 34 Chloride 103 mmol/L 98-110 34 Carbon Dioxide 26 mmol/L 19-30 34 Calcium 10.1 mg/dL 8.6-10.3 34 Glucose 140 mg/dL High 65-99 34, 52 Urea Nitrogen 11 mg/dL 7-25 34 Creatinine 1.12 mg/dL 0.70-1.25 34, 53 BUN/Creatinine Ratio 10.1 6-22 34 Urine Culture And Sensitivities 02/25/2014 Urine Culture (SEE NOTE) 54 Laboratory test finding 02/22/2014 PSA,Total 1.0 NG/ML 0.0-4.0 55 TSH & T4,Free 02/22/2014 TSH 1.62 mIU/L 0.40-4.50 T4,Free 1.1 ng/dL 0.8-1.8 CBC W/ Diff & PLT 02/22/2014 WBC 6.8 thous/L 3.8-10.8 RBC 4.05 mill/L Low 4.20-5.80 Hemoglobin 13.2 g/dL 13.2-17.1 Hematocrit 38.9 % 38.5-50.0 MCV 96.0 FL 80.0-100.0 MCH 32.7 pg 27.0-33.0 MCHC 34.0 g/dL 32.0-36.0 RDW 12.8 % 11.0-15.0 Platelet Count 245 thous/L 140-400 Platelet Sufficiency NORMAL Normal Neutrophils,Absolute 5090 cells/L 0085-6135 Bands,Absolute PENDING Metamyelocytes,Absolute PENDING Myelocytes,Absolute PENDING Promyelocytes,Absolute PENDING Lymphocytes,Absolute 1270 cells/L 850-3900 Monocytes,Absolute 260 cells/L 200-950 Eosinophils,Absolute 150 cells/L 15-500 Basophils,Absolute 0 cells/L 0-200 Blast Cells,Absolute PENDING Nucleated RBC,Absolute PENDING Total Neutrophils,% 75 % Not Established Bands,% PENDING Metamyelocytes,% PENDING Myelocytes,% PENDING Promyelocytes,% PENDING Total Lymphocytes,% 19 % Not Established Monocytes,% 4 % Not Established Eosinophils,% 2 % Not Established Basophils,% 0 % Not Established Blasts,% PENDING Nucleated RBC PENDING RBC Morphology NORMAL Anisocytosis PENDING Poikilocytosis PENDING Microcytosis PENDING Macrocytosis PENDING Polychromasia PENDING Hypochromasia PENDING Target Cells PENDING Basophilic Stippling PENDING Comment PENDING Hepatic Function Panel 02/22/2014 Alkaline Phosphatase 92 U/L 40-115 Ast 22 U/L 10-35 Alt 23 U/L 9-46 Bilirubin,Total 0.5 mg/dL 0.2-1.2 Bilirubin,Direct 0.1 mg/dL < Or=0.2 Protein,Total 7.3 g/dL 6.1-8.1 Albumin 4.4 g/dL 3.6-5.1 Globulin,Calculated 2.9 g/dL 1.9-3.7 A/G Ratio 1.5 1.0-2.5 Lipid Panel 02/22/2014 Cholesterol 176 mg/dL 125-200 HDL Cholesterol 57 mg/dL > Or=40 Cholesterol/HDL Ratio 3.1 < Or=5.0 LDL Chol,Calculated 100 mg/dL <130 56 Triglycerides 97 mg/dL <150 Non-HDL Cholesterol 119 mg/dL 57 Comp Metabolic Panel 02/22/2014 Sodium 141 mmol/L 135-146 Potassium 4.1 mmol/L 3.5-5.3 Chloride 104 mmol/L 98-110 Carbon Dioxide 27 mmol/L 19-30 Calcium 9.8 mg/dL 8.6-10.3 Alkaline Phosphatase 92 U/L 40-115 Ast 22 U/L 10-35 Alt 23 U/L 9-46 Bilirubin,Total 0.5 mg/dL 0.2-1.2 Glucose 197 mg/dL High 65-99 58 Urea Nitrogen 14 mg/dL 7-25 Creatinine 1.05 mg/dL 0.70-1.25 59 BUN/Creatinine Ratio 13.7 6-22 Protein,Total 7.3 g/dL 6.1-8.1 Albumin 4.4 g/dL 3.6-5.1 Globulin,Calculated 2.9 g/dL 1.9-3.7 A/G Ratio 1.5 1.0-2.5 Egfr Non-Afr. [place]ian 76 ML/MIN/1.73M2 > Or=60 Egfr 88 ML/MIN/1.73M2 > Or=60 BMP W/O Egfr 11/02/2013 Sodium 142 mmol/L 135-146 Potassium 4.0 mmol/L 3.5-5.3 Chloride 107 mmol/L 98-110 Carbon Dioxide 24 mmol/L 19-30 Calcium 9.4 mg/dL 8.6-10.3 Glucose 167 mg/dL High 65-99 60 Urea Nitrogen 8 mg/dL 7-25 Creatinine 1.13 mg/dL 0.70-1.25 61 BUN/Creatinine Ratio 6.8 6-22 Laboratory test finding 11/02/2013 Hemoglobin A1c 7.9 % High 0.0-5.6 62 Creatine Kinase,Total 153 U/L 44-196 Cholesterol 159 mg/dL 125-200 Direct LDL 100 mg/dL <130 63 BMP W/O Egfr 07/14/2013 Sodium 143 mmol/L 135-146 34 Potassium 4.1 mmol/L 3.5-5.3 34 Chloride 105 mmol/L 98-110 34 Carbon Dioxide 25 mmol/L 19-30 34 Calcium 10.0 mg/dL 8.6-10.3 34 Glucose 201 mg/dL High 65-99 34, 64 Urea Nitrogen 17 mg/dL 7-25 34 Creatinine 1.10 mg/dL 0.70-1.25 34, 65 BUN/Creatinine Ratio 15.3 6-22 34 Laboratory test finding 07/14/2013 Hemoglobin A1c 9.0 % High 0.0-5.6 34, 66 Direct LDL 105 mg/dL <130 34, 67 Cholesterol 174 mg/dL 125-200 34 Creatine Kinase,Total 75 U/L 44-196 34 BMP W/O Egfr 04/18/2013 Sodium 140 mmol/L 135-146 34 Potassium 3.4 mmol/L Low 3.5-5.3 34 Chloride 98 mmol/L 98-110 34 Carbon Dioxide 26 mmol/L 19-30 34 Calcium 10.2 mg/dL 8.6-10.3 34 Glucose 148 mg/dL High 65-99 34, 68 Urea Nitrogen 28 mg/dL High 7-25 34 Creatinine 1.28 mg/dL High 0.70-1.25 34, 69 BUN/Creatinine Ratio 21.9 6-22 34 Laboratory test finding 04/18/2013 Creatine Kinase,Total 104 U/L 44-196 34 Hemoglobin A1c 8.4 % High 0.0-5.6 34, 70 Direct LDL 124 mg/dL <130 34, 71 Hepatic Function Panel 04/18/2013 Alkaline Phosphatase 89 U/L 40-115 34 Ast 31 U/L 10-35 34 Alt 39 U/L 9-46 34 Bilirubin,Total 1.0 mg/dL 0.2-1.2 34 Bilirubin,Direct 0.2 mg/dL < Or=0.2 34 Protein,Total 8.0 g/dL 6.1-8.1 34 Albumin 4.9 g/dL 3.6-5.1 34 Globulin,Calculated 3.1 g/dL 1.9-3.7 34 A/G Ratio 1.6 1.0-2.5 34 Laboratory test finding 04/18/2013 Cholesterol 177 mg/dL 125-200 34 Laboratory test finding 01/17/2013 Hemoglobin A1c 8.0 % High 0.0-5.6 72 Vitamin D, 25 01/13/2013 Vitamin D,25-Oh,Total 69 ng/mL 30-100 Hydroxy,LC/MS/MS Vitamin D,25-Oh,D3 69 ng/mL Vitamin D,25-Oh,D2 <4 ng/mL 73 TSH & T4,Free 01/13/2013 TSH 1.72 mIU/L 0.40-4.50 T4,Free 1.0 ng/dL 0.8-1.8 Laboratory test finding 01/13/2013 Creatine Kinase,Total 199 U/L High 44- 196 Comp Metabolic Panel 01/13/2013 Sodium 139 mmol/L 135-146 Potassium 3.8 mmol/L 3.5-5.3 Chloride 102 mmol/L 98-110 Carbon Dioxide 25 mmol/L 19-30 Calcium 9.8 mg/dL 8.6-10.3 Alkaline Phosphatase 93 U/L 40-115 Ast 20 U/L 10-35 Alt 21 U/L 9-46 Bilirubin,Total 0.7 mg/dL 0.2-1.2 Glucose 201 mg/dL High 65-99 74 Urea Nitrogen 17 mg/dL 7-25 Creatinine 1.23 mg/dL 0.70-1.25 75 BUN/Creatinine Ratio 13.8 6-22 Protein,Total 7.5 g/dL 6.1-8.1 Albumin 4.6 g/dL 3.6-5.1 Globulin,Calculated 2.9 g/dL 1.9-3.7 A/G Ratio 1.6 1.0-2.5 Egfr Non-Afr. [place]ian 63 ML/MIN/1.73M2 > Or=60 Egfr 73 ML/MIN/1.73M2 > Or=60 CBC W/ Diff & PLT 01/13/2013 WBC 5.7 thous/L 3.8-10.8 RBC 4.32 mill/L 4.20-5.80 Hemoglobin 13.6 g/dL 13.2-17.1 Hematocrit 41.3 % 38.5-50.0 MCV 95.5 FL 80.0-100.0 MCH 31.5 pg 27.0-33.0 MCHC 32.9 g/dL 32.0-36.0 RDW 13.8 % 11.0-15.0 Platelet Count 271 thous/L 140-400 Neutrophils,Absolute 4040 cells/L 1327-5334 Lymphocytes,Absolute 1110 cells/L 850-3900 Monocytes,Absolute 390 cells/L 200-950 Eosinophils,Absolute 140 cells/L 15-500 Basophils,Absolute 20 cells/L 0-200 Total Neutrophils,% 71 % 38-80 Total Lymphocytes,% 19 % 15-49 Monocytes,% 7 % 0-13 Eosinophils,% 2 % 0-8 Basophils,% 0 % 0-2 Hepatic Function Panel 01/13/2013 Alkaline Phosphatase 93 U/L 40-115 Ast 20 U/L 10-35 Alt 21 U/L 9-46 Bilirubin,Total 0.7 mg/dL 0.2-1.2 Bilirubin,Direct 0.2 mg/dL < Or=0.2 Protein,Total 7.5 g/dL 6.1-8.1 Albumin 4.6 g/dL 3.6-5.1 Globulin,Calculated 2.9 g/dL 1.9-3.7 A/G Ratio 1.6 1.0-2.5 Lipid Panel 01/13/2013 Cholesterol 165 mg/dL 125-200 HDL Cholesterol 60 mg/dL > Or=40 Cholesterol/HDL Ratio 2.8 < Or=5.0 LDL Chol,Calculated 92 mg/dL <130 76 Triglycerides 65 mg/dL <150 Non-HDL Cholesterol 105 mg/dL 77 BMP W/O Egfr 09/07/2012 Sodium 139 mmol/L 135-146 34 Potassium 3.7 mmol/L 3.5-5.3 34 Chloride 103 mmol/L 98-110 34 Carbon Dioxide 27 mmol/L 19-30 34 Calcium 9.5 mg/dL 8.6-10.3 34 Glucose 196 mg/dL High 65-99 34, 78 Urea Nitrogen 21 mg/dL 7-25 34 Creatinine 1.21 mg/dL 0.70-1.25 34, 79 BUN/Creatinine Ratio 17.5 6-22 34 Laboratory test finding 09/07/2012 Hemoglobin A1c 8.7 % High 0.0-5.6 34, 80 Direct LDL 105 mg/dL <130 34, 81 Cholesterol 163 mg/dL 125-200 34 Laboratory test finding 06/02/2012 Creatine Kinase,Total 106 U/L 44-196 34 Hemoglobin A1c 8.5 % High 0.0-5.6 34, 82 BMP W/O Egfr 06/02/2012 Sodium 142 mmol/L 135-146 34 Potassium 4.1 mmol/L 3.5-5.3 34 Chloride 101 mmol/L 98-110 34 Carbon Dioxide 29 mmol/L 19-30 34 Calcium 9.8 mg/dL 8.6-10.3 34 Glucose 177 mg/dL High 65-99 34, 83 Urea Nitrogen 17 mg/dL 7-25 34 Creatinine 1.18 mg/dL 0.70-1.25 34, 84 BUN/Creatinine Ratio 14.4 6-22 34 Laboratory test finding 06/02/2012 Direct LDL 96 mg/dL <130 34, 85 Hepatic Function Panel 06/02/2012 Alkaline Phosphatase 105 U/L 40-115 34 Ast 25 U/L 10-35 34 Alt 37 U/L 9-60 34 Bilirubin,Total 0.5 mg/dL 0.2-1.2 34 Bilirubin,Direct 0.1 mg/dL < Or=0.2 34 Protein,Total 7.4 g/dL 6.1-8.1 34 Albumin 4.5 g/dL 3.6-5.1 34 Globulin,Calculated 2.9 g/dL 1.9-3.7 34 A/G Ratio 1.5 1.0-2.5 34 Hepatic Function Panel 02/29/2012 Alkaline Phosphatase 89 U/L 40-115 34 Ast 24 U/L 10-35 34 Alt 30 U/L 9-60 34 Bilirubin,Total 0.5 mg/dL 0.2-1.2 34 Bilirubin,Direct 0.1 mg/dL < Or=0.2 34 Protein,Total 7.6 g/dL 6.1-8.1 34 Albumin 4.7 g/dL 3.6-5.1 34 Globulin,Calculated 2.9 g/dL 1.9-3.7 34 A/G Ratio 1.6 1.0-2.5 34 Hepatitis C Antibody 02/02/2012 Hepatitis C AB NON-REACTIVE Non-Reactive Signal To Cutoff Ratio 0.04 Less Than 1.0 86 Hepatitis PNL W/RFX,Acute 02/02/2012 HB S Ag NON-REACTIVE Non-Reactive Hepatitis A AB (Igm) NON-REACTIVE Non-Reactive HB Core AB (Igm) NON-REACTIVE Non-Reactive Hepatitis C AB NON-REACTIVE Non-Reactive Signal To Cutoff Ratio 0.04 Less Than 1.0 87 CBC W/ Diff & PLT 01/26/2012 White Blood Count 5.3 K/uL 3.4-10.5 Red Blood Count 4.32 M/uL 4.20-5.80 Hemoglobin 13.7 gm/dL 12.8-17.0 Hematocrit 39.8 % 38.0-48.0 Mean Cell Volume 92.1 fl 80.0-96.0 Mean Corpuscular HGB 31.7 pg 27.0-33.0 Mean Corpuscular HGB Conc 34.4 g/dL 31.7-36.0 Platelet Count 262 K/uL 150-400 Red Cell Distri Width SD 40.9 fl 36-51 Red Cell Distri Width %CV 12.7 % 11.6-15.8 Mean Platelet Volume 9.4 fL 6.6-10.6 Neut% 69.3 % 33.0-73.0 Lymph % 19.6 % 17.0-56.0 [place] % 7.7 % 0.0-10.0 Eo% 2.6 % 0.0-5.0 Bas% 0.8 % 0.1-1.0 Neut# 3.68 K/uL 1.8-7.0 Lymph # 1.04 K/uL Low 1.2-4.0 [place] # 0.41 K/uL 0.0-0.6 Eos # 0.14 K/uL 0.0-0.5 Baso # 0.04 K/uL Low 0.1-0.2 Lipid Panel 01/26/2012 Cholesterol 194 mg/dL 120-200 Triglycerides 71 mg/dL 16-231 HDL Cholesterol 58 mg/dL 29-83 LDL-Cholesterol 122 mg/dL 62-185 Laboratory test finding 01/26/2012 CK 260 U/L High 26-190 Glycohemoglobin A1c 01/26/2012 Glycohemoglobin (A1c) 8.1 % High 4.8-6.0 88 eAG 186 mg/dL Laboratory test finding 01/26/2012 Prostate Specific Antigen 0.97 ng/mL 0.0-4.0 89 Testosterone,Serum 265 ng/dL Low 348-1197 90 Laboratory test finding 01/26/2012 Prolactin 6.6 ng/mL 3.28-19.68 Progesterone 0.3 ng/mL 0.2-1.4 91 Estrone 67 pg/mL 12-72 92 Estrogen,Total 148 pg/mL High 40-115 Comprehensive Metabolic Panel 01/26/2012 Glucose 179 mg/dL High 76-115 BUN 21 mg/dL 5-23 Creatinine 1.1 mg/dL 0.5-1.4 Glom Filtration Rate, Estimate >60 mL/min >60 If >60 mL/min >60 93 BUN/Creat 19.0 ratio Sodium 136 mmol/L 136-145 Potassium 3.7 mmol/L 3.5-5.1 Chloride 101 mmol/L 98-107 Carbon Dioxide 27 mEq/L 18-29 Anion Gap 12 mEq/L 8-16 Calcium 9.4 mg/dL 8.5-10.1 Total Protein 8.4 g/dL High 6.3-8.0 Albumin 4.1 g/dL 3.5-5.0 Globulin 4.3 g/dL 1.9-4.3 Alb/Glob 1.0 ratio Bilirubin,Total 0.8 mg/dL 0.2-1.2 Sgot/Ast 43 U/L High 16-40 SGPT/Alt 66 U/L High 30-65 Alkaline Phosphatase 86 U/L 50-136 Estimated GFR 01/26/2012 Creatinine 1.1 mg/dL 0.5-1.4 Glom Filtration Rate, Estimate >60 mL/min >60 If >60 mL/min >60 94 Laboratory test finding 01/26/2012 Bilirubin,Direct 0.2 mg/dL 0.1-0.4 CK-MB (Mass) 1.4 ng/ml 0.5-8.2 Relative % Index 0.5 % <5 95 FSH 4.6 mIU/mL 1.0-8.0 Luteinizing Hormone 3.0 mIU/mL 2.0-12.0 1 FASTING 2 GLUCOSE REFERENCE RANGE BASED ON FASTING SPECIMEN. 3 The upper reference limit for Creatinine is approximately 13% higher for people identified as -[place]ian. 4 For the purpose of screening for the presence of diabetes: <5.7% Consistent with the absence of diabetes 5.7-6.4% Consistent with the increased risk of diabetes (prediabetes) >or=6.5% Consistent with diabetes This assay result is conistent with a decreased risk of diabetes. Currently, no consensus exists regarding use of hemoglobin A1C for diagnosis of diabetes in children. According to [place] Diabetes Association (ADA) guidelines, hemoglobin A1C <7.0% represents optimal control in non- diabetic patients. Different metrics may apply to specific patient populations. Standards of Medical Care in Diabetes (ADA) FOR DIAGNOSTIC PURPOSES: A1C VALUE(% OF TOTAL HEMOGLOBIN) INTERPRETATION < 5.7 CONSISTENT WITH THE ABSENCE OF DIABETES 5.7 - 6.4 CONSISTENT WITH INCREASED RISK OF DIABETES > OR=6.5 CONSISTENT WITH DIABETES FOR MONITORING PURPOSES (ADA GUIDELINNES): A1C VALUE(% OF TOTAL HEMOGLOBIN) INTERPRETATION < 6.5 ACHIEVES STRINGENT GLYCEMIC GOAL < 7.0 ACHIEVES GENERAL GLYCEMIC GOAL(NON- ADULTS) < 8.0 ACHIEVES LESS STRINGENT GLYCEMIC GOAL 5 Relative blood cell counts (%) should be compared with absolute cell counts (cells/mcL). Relative counts may not be clinically meaningful if the absolute count of one or more cell type is decreased. Reference ranges for relative cell counts derived from: A Manual of Laboratory and Diagnostics Tests, 9th Ed, [employer], 2015. Pediatric Reference Intervals, 7th Ed, [facility] Press, 2011. 6 For someone without known diabetes, a hemoglobin A1C value of 6.5% or greater indicates that they may have diabetes and this should be confirmed with a follow-up test. For someone with known diabetes, a value <7% indicates that their diabetes is well controlled and a value greater than or equal to 7% indicates suboptimal control. A1C targets should be individualized based on duration of diabetes, age, comorbid conditions, and other considerations. Currently, no consensus exists for use of hemoglobin A1C for diagnosis of diabetes for children. FOR DIAGNOSTIC PURPOSES: A1C VALUE(% OF TOTAL HEMOGLOBIN) INTERPRETATION < 5.7 CONSISTENT WITH THE ABSENCE OF DIABETES 5.7 - 6.4 CONSISTENT WITH INCREASED RISK OF DIABETES > OR=6.5 CONSISTENT WITH DIABETES FOR MONITORING PURPOSES (ADA GUIDELINNES): A1C VALUE(% OF TOTAL HEMOGLOBIN) INTERPRETATION < 6.5 ACHIEVES STRINGENT GLYCEMIC GOAL < 7.0 ACHIEVES GENERAL GLYCEMIC GOAL(NON- ADULTS) < 8.0 ACHIEVES LESS STRINGENT GLYCEMIC GOAL 7 The total PSA value from this assay system is standardized against the WHO standard. The test result will be approximately 20% lower when compared to the equimolar-standardized total PSA (Dianne Dann). Comparison of serial PSA results should be interpreted with this fact in mind. This test was performed using the Siemens chemiluminescent method. Values obtained from different assay methods be used interchangeably. PSA levels, regardless of value, should not be interpreted as absolute evidence of the presence or absence of disease. 8 GLUCOSE REFERENCE RANGE BASED ON FASTING SPECIMEN. 9 The upper reference limit for Creatinine is approximately 13% higher for people identified as -[place]ian. 10 GLUCOSE REFERENCE RANGE BASED ON FASTING SPECIMEN. 11 The upper reference limit for Creatinine is approximately 13% higher for people identified as -[place]ian. 12 LDL-CHOLESTEROL RISK CATEGORY* GOAL VERY HIGH (E.G. DIABETES + CVD) <70 MG/DL HIGH (DIABETICS; CHD RISK EQUIVALENTS) <100 MG/DL MODERATELY HIGH (MULTIPLE(2+) RISK FACTORS) <130 MG/DL 0 TO 1 RISK FACTORS <160 MG/DL * NCEP REPORT. CIRCULATION 2004; 110: 227-239 13 Target for non-HDL cholesterol is 30 mg/dL higher than LDL cholesterol target. 14 According to ADA guidelines, hemoglobin A1c <7.0% [...] A1C for diagnosis of diabetes in children. 15 LDL-CHOLESTEROL RISK CATEGORY* GOAL VERY HIGH (E.G. DIABETES + CVD) <70 MG/DL HIGH (DIABETICS; CHD RISK EQUIVALENTS) <100 MG/DL MODERATELY HIGH (MULTIPLE(2+) RISK FACTORS) <130 MG/DL 0 TO 1 RISK FACTORS <160 MG/DL * NCEP REPORT. CIRCULATION 2004; 110: 227-239 16 Target for non-HDL cholesterol is 30 mg/dL higher than LDL cholesterol target. 17 GLUCOSE REFERENCE RANGE BASED ON FASTING SPECIMEN. 18 The upper reference limit for Creatinine is approximately 13% higher for people identified as -[place]ian. 19 CONSULT 01/26 75.102 [id number] 20 Charting This Result Notify Physician 21 GLUCOSE REFERENCE RANGE BASED ON FASTING SPECIMEN. 22 The upper reference limit for Creatinine is approximately 13% higher for people identified as -[place]ian. 23 According to ADA guidelines, hemoglobin A1c <7.0% [...] A1C for diagnosis of diabetes in children. 24 LDL-CHOLESTEROL RISK CATEGORY* GOAL VERY HIGH (E.G. DIABETES + CVD) <70 MG/DL HIGH (DIABETICS; CHD RISK EQUIVALENTS) <100 MG/DL MODERATELY HIGH (MULTIPLE(2+) RISK FACTORS) <130 MG/DL 0 TO 1 RISK FACTORS <160 MG/DL * NCEP REPORT. CIRCULATION 2004; 110: 227-239 25 Target for non-HDL cholesterol is 30 mg/dL higher than LDL cholesterol target. 26 Note: Persistent reduction for 3 months or more in an eGFR <60 mL/min/1.73 m2 defines CKD. Patients with eGFR values >/=60 mL/min/1.73 m2 may also have CKD if evidence of persistent proteinuria is present. The original MDRD equation for estimated GFR is not valid for patients less than 18 years of age. Additional information may be found at www.kdoqi.org. 27 According to ADA guidelines, hemoglobin A1c <7.0% [...] A1C for diagnosis of diabetes in children. 28 GLUCOSE REFERENCE RANGE BASED ON FASTING SPECIMEN. 29 The upper reference limit for Creatinine is approximately 13% higher for people identified as -[place]ian. 30 Relative blood cell counts (%) should be compared with absolute cell counts (cells/mcL). Relative counts may not be clinically meaningful if the absolute count of one or more cell type is decreased. Reference ranges for relative cell counts derived from: A Manual of Laboratory and Diagnostics Tests, 9th Ed, [employer] & Bell[employer], 2015. Pediatric Reference Intervals, 7th Ed, [employer], 2011. 31 LDL-CHOLESTEROL RISK CATEGORY* GOAL VERY HIGH (E.G. DIABETES + CVD) <70 MG/DL HIGH (DIABETICS; CHD RISK EQUIVALENTS) <100 MG/DL MODERATELY HIGH (MULTIPLE(2+) RISK FACTORS) <130 MG/DL 0 TO 1 RISK FACTORS <160 MG/DL * NCEP REPORT. CIRCULATION 2004; 110: 227-239 32 Target for non-HDL cholesterol is 30 mg/dL higher than LDL cholesterol target. 33 THIS TEST WAS PERFORMED USING THE SIEMENS CHEMILUMINESCENT METHOD. VALUES OBTAINED FROM DIFFERENT ASSAY METHODS CANNOT BE USED INTERCHANGEABLY. PSA LEVELS, REGARDLESS OF VALUE, SHOULD NOT BE INTERPRETED ABSOLUTE EVIDENCE OF THE PRESENCE OR ABSENCE OF DISEASE. 34 FASTING 35 LDL-CHOLESTEROL RISK CATEGORY* GOAL VERY HIGH (E.G. DIABETES + CVD) <70 MG/DL HIGH (DIABETICS; CHD RISK EQUIVALENTS) <100 MG/DL MODERATELY HIGH (MULTIPLE(2+) RISK FACTORS) <130 MG/DL 0 TO 1 RISK FACTORS <160 MG/DL * NCEP REPORT. CIRCULATION 2004; 110: 227-239 36 Target for non-HDL cholesterol is 30 mg/dL higher than LDL cholesterol target. 37 According to ADA guidelines, hemoglobin A1c <7.0% [...] A1C for diagnosis of diabetes in children. 38 GLUCOSE REFERENCE RANGE BASED ON FASTING SPECIMEN. 39 The upper reference limit for Creatinine is approximately 13% higher for people identified as -[place]ian. 40 GLUCOSE REFERENCE RANGE BASED ON FASTING SPECIMEN. 41 The upper reference limit for Creatinine is approximately 13% higher for people identified as -[place]ian. 42 According to ADA guidelines, hemoglobin A1c <7.0% [...] A1C for diagnosis of diabetes in children. 43 LDL-CHOLESTEROL RISK CATEGORY* GOAL VERY HIGH (E.G. DIABETES + CVD) <70 MG/DL HIGH (DIABETICS; CHD RISK EQUIVALENTS) <100 MG/DL MODERATELY HIGH (MULTIPLE(2+) RISK FACTORS) <130 MG/DL 0 TO 1 RISK FACTORS <160 MG/DL * NCEP REPORT. CIRCULATION 2004; 110: 227-239 44 Target for non-HDL cholesterol is 30 mg/dL higher than LDL cholesterol target. 45 GLUCOSE REFERENCE RANGE BASED ON FASTING SPECIMEN. 46 The upper reference limit for Creatinine is approximately 13% higher for people identified as -[place]ian. 47 According to ADA guidelines, hemoglobin A1c <7.0% [...] A1C for diagnosis of diabetes in children. 48 LDL-CHOLESTEROL RISK CATEGORY* GOAL VERY HIGH (E.G. DIABETES + CVD) <70 MG/DL HIGH (DIABETICS; CHD RISK EQUIVALENTS) <100 MG/DL MODERATELY HIGH (MULTIPLE(2+) RISK FACTORS) <130 MG/DL 0 TO 1 RISK FACTORS <160 MG/DL * NCEP REPORT. CIRCULATION 2004; 110: 227-239 49 LDL-CHOLESTEROL RISK CATEGORY* GOAL VERY HIGH (E.G. DIABETES + CVD) <70 MG/DL HIGH (DIABETICS; CHD RISK EQUIVALENTS) <100 MG/DL MODERATELY HIGH (MULTIPLE(2+) RISK FACTORS) <130 MG/DL 0 TO 1 RISK FACTORS <160 MG/DL * NCEP REPORT. CIRCULATION 2004; 110: 227-239 50 Target for non-HDL cholesterol is 30 mg/dL higher than LDL cholesterol target. 51 According to ADA guidelines, hemoglobin A1c <7.0% [...] A1C for diagnosis of diabetes in children. 52 GLUCOSE REFERENCE RANGE BASED ON FASTING SPECIMEN. 53 The upper reference limit for Creatinine is approximately 13% higher for people identified as -[place]ian. 54 RUN DATE: 02/28/14 [facility] LAB LIVE PAGE 1 RUN TIME: [id number] [place] [id number] Specimen Inquiry Name: PAVAN CUNNINGHAM : [address]: Sal Orozco MD Acct: [id number] Unit: [id number] AGE: 63 Location: [facility] Re02/25/14 SEX: M Status: DEP ER SPEC: [id number] LISA: 02/25/14-[address] [facility] [address]: Sal Orozco MD REQ: [id number] RECD: 02/26/14 STATUS: DEVENDRA KWON DR: Porter Barrios MD _ SOURCE: URINE [facility]: ORDERED: Urine Culture Procedure Result Verified Site Urine Culture Final 02/28/14- 1053 ML No Growth Day 2 (<1,000 CFU/mL) END OF REPORT * ML=Testing performed at Main Lab DEPARTMENT OF PATHOLOGY, [address] [place] [address] José Miguel De La Cruz M.D. Director [facility] # [id number] 55 THIS TEST WAS PERFORMED USING THE SIEMENS CHEMILUMINESCENT METHOD. VALUES OBTAINED FROM DIFFERENT ASSAY METHODS CANNOT BE USED INTERCHANGEABLY. PSA LEVELS, REGARDLESS OF VALUE, SHOULD NOT BE INTERPRETED ABSOLUTE EVIDENCE OF THE PRESENCE OR ABSENCE OF DISEASE. 56 LDL-CHOLESTEROL RISK CATEGORY* GOAL VERY HIGH (E.G. DIABETES + CVD) <70 MG/DL HIGH (DIABETICS; CHD RISK EQUIVALENTS) <100 MG/DL MODERATELY HIGH (MULTIPLE(2+) RISK FACTORS) <130 MG/DL 0 TO 1 RISK FACTORS <160 MG/DL * NCEP REPORT. CIRCULATION 2004; 110: 227-239 57 Target for non-HDL cholesterol is 30 mg/dL higher than LDL cholesterol target. 58 GLUCOSE REFERENCE RANGE BASED ON FASTING SPECIMEN. 59 The upper reference limit for Creatinine is approximately 13% higher for people identified as -[place]ian. 60 GLUCOSE REFERENCE RANGE BASED ON FASTING SPECIMEN. 61 The upper reference limit for Creatinine is approximately 13% higher for people identified as -[place]ian. 62 According to ADA guidelines, hemoglobin A1c <7.0% [...] A1C for diagnosis of diabetes in children. 63 LDL-CHOLESTEROL RISK CATEGORY* GOAL VERY HIGH (E.G. DIABETES + CVD) <70 MG/DL HIGH (DIABETICS; CHD RISK EQUIVALENTS) <100 MG/DL MODERATELY HIGH (MULTIPLE(2+) RISK FACTORS) <130 MG/DL 0 TO 1 RISK FACTORS <160 MG/DL * NCEP REPORT. CIRCULATION 2004; 110: 227-239 64 GLUCOSE REFERENCE RANGE BASED ON FASTING SPECIMEN. 65 The upper reference limit for Creatinine is approximately 13% higher for people identified as -[place]ian. 66 According to ADA guidelines, hemoglobin A1c <7.0% [...] A1C for diagnosis of diabetes in children. 67 LDL-CHOLESTEROL RISK CATEGORY* GOAL VERY HIGH (E.G. DIABETES + CVD) <70 MG/DL HIGH (DIABETICS; CHD RISK EQUIVALENTS) <100 MG/DL MODERATELY HIGH (MULTIPLE(2+) RISK FACTORS) <130 MG/DL 0 TO 1 RISK FACTORS <160 MG/DL * NCEP REPORT. CIRCULATION 2004; 110: 227-239 68 GLUCOSE REFERENCE RANGE BASED ON FASTING SPECIMEN. 69 The upper reference limit for Creatinine is approximately 13% higher for people identified as -[place]ian. 70 According to ADA guidelines, hemoglobin A1c <7.0% [...] A1C for diagnosis of diabetes in children. 71 LDL-CHOLESTEROL RISK CATEGORY* GOAL VERY HIGH (E.G. DIABETES + CVD) <70 MG/DL HIGH (DIABETICS; CHD RISK EQUIVALENTS) <100 MG/DL MODERATELY HIGH (MULTIPLE(2+) RISK FACTORS) <130 MG/DL 0 TO 1 RISK FACTORS <160 MG/DL * NCEP REPORT. CIRCULATION 2004; 110: 227-239 72 According to ADA guidelines, hemoglobin A1c <7.0% [...] A1C for diagnosis of diabetes in children. 73 25-OHD3 indicates both endogenous production and supplementation. 25-OHD2 is an indicator of exogenous sources such as diet or supplementation. Therapy is based on measurement of Total 25-OHD, with levels <20 ng/mL indicative of Vitamin D deficiency while levels between 20 ng/mL and 30 ng/mL suggest insufficiency. Optimal levels are > or=30ng/mL. For more information on this test, go to http://[email or web address]/faq/25-OHVitaminD 74 GLUCOSE REFERENCE RANGE BASED ON FASTING SPECIMEN. 75 The upper reference limit for Creatinine is approximately 13% higher for people identified as -[place]ian. 76 LDL-CHOLESTEROL RISK CATEGORY* GOAL VERY HIGH (E.G. DIABETES + CVD) <70 MG/DL HIGH (DIABETICS; CHD RISK EQUIVALENTS) <100 MG/DL MODERATELY HIGH (MULTIPLE(2+) RISK FACTORS) <130 MG/DL 0 TO 1 RISK FACTORS <160 MG/DL * NCEP REPORT. CIRCULATION 2004; 110: 227-239 77 Target for non-HDL cholesterol is 30 mg/dL higher than LDL cholesterol target. 78 GLUCOSE REFERENCE RANGE BASED ON FASTING SPECIMEN. 79 The upper reference limit for Creatinine is approximately 13% higher for people identified as -[place]ian. 80 A1C VALUE(% OF TOTAL HEMOGLOBIN) INTERPRETATION < 5.7 DECREASED RISK OF DIABETES 5.7 - 6.0 INCREASED RISK OF DIABETES 6.1 - 6.4 HIGHER RISK OF DIABETES > OR=6.5 CONSISTENT WITH DIABETES 81 LDL-CHOLESTEROL RISK CATEGORY* GOAL VERY HIGH (E.G. DIABETES + CVD) <70 MG/DL HIGH (DIABETICS; CHD RISK EQUIVALENTS) <100 MG/DL MODERATELY HIGH (MULTIPLE(2+) RISK FACTORS) <130 MG/DL 0 TO 1 RISK FACTORS <160 MG/DL * [facility]P REPORT. CIRCULATION 2004; 110: [id number] 82 A1C VALUE(% OF TOTAL HEMOGLOBIN) INTERPRETATION < 5.7 DECREASED RISK OF DIABETES 5.7 - 6.0 INCREASED RISK OF DIABETES 6.1 - 6.4 HIGHER RISK OF DIABETES > OR=6.5 CONSISTENT WITH DIABETES 83 GLUCOSE REFERENCE RANGE BASED ON FASTING SPECIMEN. 84 The upper reference limit for Creatinine is approximately 13% higher for people identified as -[place]. 85 LDL-CHOLESTEROL RISK CATEGORY* GOAL VERY HIGH (E.G. DIABETES + CVD) <70 MG/DL HIGH (DIABETICS; CHD RISK EQUIVALENTS) <100 MG/DL MODERATELY HIGH (MULTIPLE(2+) RISK FACTORS) <130 MG/DL 0 TO 1 RISK FACTORS <160 MG/DL * [facility]P REPORT. CIRCULATION 2004; 110: [phone] 86 A NON-SPECIFIC TEST WAS ORDERED AND THE ABOVE ASSAY WAS PERFORMED. IF THIS IS NOT WHAT YOU INTENDED TO ORDER, PLEASE CONTACT YOUR LOCAL PENCIL INSPECTOR IMMEDIATELY AT SO THAT WE CAN ADJUST OUR BILLING APPROPRIATELY. YOU MAY ALSO INQUIRE ABOUT ALTERNATIVE OR ADDITIONAL TESTING. 87 A NON-SPECIFIC TEST WAS ORDERED AND THE ABOVE ASSAY WAS PERFORMED. IF THIS IS NOT WHAT YOU INTENDED TO ORDER, PLEASE CONTACT YOUR LOCAL PENCIL INSPECTOR IMMEDIATELY AT SO THAT WE CAN ADJUST OUR BILLING APPROPRIATELY. YOU MAY ALSO INQUIRE ABOUT ALTERNATIVE OR ADDITIONAL TESTING. 88 A1c value between 5.7% and 6.4% is considered at increased risk for diabetes. A1c value greater than 6.5 % is considered essentially diagnostic for Type II diabetes. Current guidelines recommend a treatment goal of <7% for diabetic patients. This method will measure glycosylated hemoglobin variants, HbS, HbG, HbH, HbWayne, HbC, HbE, etc. Other hemoglobin- opathies may give incorrect results with this test. 89 THIS ASSAY IS NOT INTENDED A CANCER SCREENING TEST The concentration of PSA in a given specimen, determined with assays from different manufacturers, can vary due to differences in assay methods and reagent specificity. Values obtained from different assay methods cannot be used interchangeably. 90 Performed at: - [facility] [address], [place], [place] [id number] Director Of Home Care Hospice: Ashlie Farmer MD, Phone: [phone] Performed at: - [facility] [id number] Director Of Home Care Hospice: Colton Macias MD, Phone: [phone] QUERY: Date of Last Menstrual Period* QUERY: Weeks Gestation * QUERY: LMP 92 Male Female 0 - 5 years 18 - 53 19 - 46 6 - 7 years 17 - 48 17 - 44 8 - 9 years 20 - 54 31 - 70 10 - 11 years 21 - 49 28 - 68 12 - 14 years 17 - 44 57 - 140 Adult 12 - 72 See below Female: Follicular Phase 37 - 138 Mid-cycle 60 - 229 Luteal Phase 50 - 114 Post Menopausal 14 - 103 93 Note: Persistent reduction for 3 months or more in an eGFR <60 mL/min/1.73 m2 defines CKD. Patients with eGFR values >/=60 mL/min/1.73 m2 may also have CKD if evidence of persistent proteinuria is present. The original MDRD equation for estimated GFR is not valid for patients less than 18 years of age. Additional information may be found at www.kdoqi.org. 94 Note: Persistent reduction for 3 months or more in an eGFR <60 mL/min/1.73 m2 defines CKD. Patients with eGFR values >/=60 mL/min/1.73 m2 may also have CKD if evidence of persistent proteinuria is present. The original MDRD equation for estimated GFR is not valid for patients less than 18 years of age. Additional information may be found at www.kdoqi.org. 95 < 5%=non AMI 5 - 10%=borderline for AMI > 10%=positive for AMI FOR DIAGNOSTIC PURPOSES, THE CK-MB RESULT (MASS AND RELATIVE PERCENT INDEX) SHOULD BE USED IN CONJUNCTION WITH OTHER PERTINENT CLINICAL DATA. Procedures Date CPT Code Description Status 09/28/2016 19720 EKG-Tracing & Report Completed 09/03/2016 84833 Echocardiography Completed 06/18/2016 15622 Bone Density Completed 06/18/2016 Bone Mineral Density Test Completed 07/16/2015 05807 Non-Invcorrotid/Comp /Bilat Study Completed 07/16/2015 36496 Echocardiography Completed 08/02/2014 50674 EKG-Tracing & Report Completed 08/01/2014 69552 Spirometry Graphic Record/Max Voluntary Vent Completed 08/01/2014 86488 Holter Monitor Office Completed 07/24/2014 94484 Non-Invcorrotid/Comp /Bilat Study Completed 07/24/2014 05115 Echocardiography Completed 01/16/2013 61064 Non-Invcorrotid/Comp /Bilat Study Completed 01/16/2013 34055 Echocardiography Completed 01/13/2013 31573 PVR-Atrerial Study Completed 01/12/2013 30097 Bone Density Completed 01/26/2012 23586 EKG-Tracing & Report Completed Encounters Type Date Location Provider CPT E/M Dx Office Visit 01/29/2017 12:45p [place] [address] E11.21 E78.5 I11.9 E55.9 M25.561 Z23 Office Visit 10/06/2016 2:00p [place] [address] E78.5 E11.21 I11.9 M75.101 E55.9 Z00.00 Office Visit 07/03/2016 1:30p [place] [address] E78.5 E11.21 I11.9 M75.101 E55.9 I34.0 I65.23 R00.2 I73.9 Office Visit 05/19/2016 11:45a [place] [address] J01.90 J06.9 E83.42 Office Visit 04/08/2016 2:00p [place] [address] E83.42 E78.5 E11.21 I11.9 M75.101 E55.9 Office Visit 12/06/2015 12:45p [place] [address] E83.42 E78.5 E11.21 I11.9 M75.101 Z23 Office Visit 09/27/2015 1:45p [place] [address] R25.2 E83.42 E86.0 Office Visit 09/09/2015 11:45a [place] [address] E78.5 E11.21 I11.9 M75.101 F65.1 Z00.00 Office Visit 04/12/2015 11:30a [place] [address] E78.5 E11.21 I11.9 M75.101 I34.8 Office Visit 01/15/2015 12:00p [place] [address] E78.5 E11.21 I11.9 M75.101 M75.102 Z23 Office Visit 09/26/2014 2:15p [place] [address] 272.4 424.0 402.10 250.42 726.19 GENERAL Office Visit 06/21/2014 11:00a [place] [address] 402.10 428.32 272.4 250.42 302.3 424.0 433.10 785.10 733.90 268.9 GENERAL Office Visit 03/14/2014 8:45a [place] [address] 302.3 402.10 428.32 272.4 250.42 608.1 V72.2 V72.0 V70.0 GENERAL Office Visit 02/28/2014 12:15p [place] [address] 789.06 GENERAL Office Visit 11/23/2013 10:15a [place] [address] 302.3 428.32 402.10 250.42 272.4 V04.81 GENERAL Office Visit 08/17/2013 4:00p [place] [address] 302.3 428.32 402.10 250.42 272.4 GENERAL Office Visit 04/25/2013 12:45p [place] [address] 723.8 302.3 257.8 428.32 402.10 250.42 272.4 604.90 GENERAL Office Visit 03/28/2013 9:15a [place] [address] 723.8 250.02 272.4 GENERAL Office Visit 03/06/2013 8:30a [place] [address] 723.8 GENERAL Office Visit 01/25/2013 11:30a [place] [address] 374.30 250.02 604.90 608.1 603.8 GENERAL Office Visit 01/17/2013 9:15a [place] [address] 733.90 250.02 302.3 272.4 424.0 374.30 257.8 V72.2 V72.0 V70.0 GENERAL Office Visit 09/19/2012 2:30p [place] [address] 250.02 302.3 272.4 424.0 724.50 726.19 786.50 GENERAL Office Visit 06/09/2012 11:15a [place] [address] 250.02 401.9 302.3 272.4 424.0 428.32 726.19 724.50 GENERAL Office Visit 03/03/2012 2:45p [place] [address] 794.8 250.02 401.9 GENERAL Office Visit 02/18/2012 12:15p [place] [address] 302.3 401.9 250.02 272.4 GENERAL Office Visit 02/02/2012 12:15p [place] [address] 272.4 250.02 401.9 530.81 302.3 V72.2 V70.0 794.8 424.0 428.32 GENERAL Office Visit 01/07/2012 11:15a [place] [address] 250.02 272.4 401.9 530.81 302.3 V03.82 GENERAL Plan of Care Future Appointment(s):04/26/2017 8:00 am - Nurse at Main [id number]/05/2017 11: 45 am - Porter Barrios MD at Main [id number]/22/2017 - Cricket Mayes Medication: Valacyclovir HCL 1 gm
[2017-03-20 19:38] VITALS: BP 133/68
[2017-03-20] MEDS ORDERED: Tetan/Diph/Pertus SYR(Tdap)* 0.5 ML SYR(BOOSTRIX) use SYR IM ONE (19:50)
--- NOTE | 2017-03-20 20:02 | UC ---
Laceration HPI - HPI Summary HPI Summary: 66 y/o male presents to the urgent care c/o RT eat lobe cut when she was pulling her earning by accident 2 days ago. Her ear lobe hole is completely open. Bleeding stopped the same day. But she wafts to know if we can suture it back. She has mild redness and denies pain. Pt can't recalled when was the last Tetanus vaccine. Pt denies fever, SOB, chest pain, N/V/D, abdominal pain, dizziness - History Of Current Complaint Chief Complaint: UCEar Stated Complaint: RIGHT EAR COMPLAINT Time Seen by Provider: 03/20/17 19:35 Hx Obtained From: Patient Laceration Location: Ear - RT ear lobe cut s/p pulling her earring Mechanism Of Injury: Blunt Trauma Onset/Duration: Sudden Onset, Lasting Days - 2 days, Still Present Severity: Mild Pain Intensity: 0 Pain Scale Used: 0-10 Numeric Aggravating Factors: Nothing - Allergies/Home Medications Allergies/Adverse Reactions: Allergies Allergy/AdvReac Type Severity Reaction Status Date / Time Codeine Allergy Intermediate FEELS VERY Verified 03/20/17 19:38 HOT, FLUSHING Penicillins Allergy Intermediate Rash Verified 03/20/17 19:38 PMH/Surg Hx/FS Hx/Imm Hx Previously Healthy: Yes Endocrine History: Diabetes, Dyslipidemia Cardiovascular History: Hypertension - Surgical History Surgical History: Yes Surgery Procedure, Year, and Place: Bi-lat KNEE, SHOULDER - Family History Known Family History: Positive: Cardiac Disease, Diabetes - Social History Occupation: Unemployed Lives: With Family Alcohol Use: None Substance Use Type: None Smoking Status (MU): Never Smoked Tobacco Have You Smoked in the Last Year: No - Immunization History Most Recent Influenza Vaccination: January 2017 Hx Tetanus, Diphtheria Vaccination: No Review of Systems Constitutional: Negative Skin: Other - cut of RT earlobe s/p pulling earring with mild redness Eyes: Negative ENT: Negative Respiratory: Negative Cardiovascular: Negative Gastrointestinal: Negative Genitourinary: Negative Motor: Negative Neurovascular: Negative Musculoskeletal: Negative Neurological: Negative Psychological: Negative Is Patient Immunocompromised?: No All Other Systems Reviewed And Are Negative: Yes Physical Exam Triage Information Reviewed: Yes Vital Signs: Initial Vital Signs Temp 98.4 F 03/20/17 19:35 Pulse 90 03/20/17 19:35 Resp 16 03/20/17 19:35 BP 133/68 03/20/17 19:35 Pulse Ox 97 03/20/17 19:35 - Additional Comments Vital Signs Reviewed: Yes General: well developed, well nourished male sitting in the examining table w/o any apparent distress Eye Exam: Normal Eyes: Positive: Conjunctiva Clear - PERRLA, EOMI, fundi grossly normal ENT: Positive: Normal ENT inspection, Hearing grossly normal, Pharynx normal, TMs normal Neck: Positive: Supple, Nontender, No Lymphadenopathy Respiratory: Positive: Chest non-tender, Lungs clear, Normal breath sounds, No respiratory distress Cardiovascular: Positive: RRR, No Murmur, Pulses Normal, Brisk Capillary Refill Abdomen Description: Positive: Nontender, No Organomegaly, Soft. Negative: CVA Tenderness (R), CVA Tenderness (L) Bowel Sounds: Positive: Present Musculoskeletal: Positive: Strength Intact, ROM Intact, No Edema Neurological: Positive: Alert, Muscle Tone Normal Psychological Exam: Normal Skin: Positive: Rt ear lobe with a discrete laceration at the ear lobe ear earring hole, about 2mm in size now completely open with mild erythema and non tender to palpation. no bleeding or swelling observed, Laceration Course/Dx - Course/Dx Course Of Treatment: 66 y/o male presents to the urgent care c/o RT eat lobe cut when she was pulling her earning by accident 2 days ago. Her ear lobe hole is completely open. Bleeding stopped the same day. But she wafts to know if we can suture it back. She has mild redness and denies pain. Pt can't recalled when was the last Tetanus vaccine. Pt denies fever, SOB, chest pain, N/V/D, abdominal pain, dizziness. Hx obtained. Pt with Rt ear lobe with a discrete laceration at the ear lobe ear earring hole, about 2mm in size now completely open with mild erythema and non tender to palpation. no bleeding or swelling observed. No laceration repair needed at this time. More than 48hrs of onset. Pt given Dtap vaccine by the Nurse. Pt tolerated well vaccine. Pt W/ PMHX of DM type II. Pt PCP allergic Pt given and Rx Doxicycline prophylactically and Bacitracin topical. Pt explained D/C instructions. Pt understood and agreed w/ plan of care. Pt left the clinic A&OX3 and hemodynamically stable. - Differential Dx - Laceration/Wound Differental Diagnoses: Abrasion, Cellulitis, Laceration, Puncture Wound Provider Diagnoses: 1- Superficial discrete Lacertation of RT ear lobe Discharge - Discharge Plan Condition: Stable Disposition: HOME Prescriptions: Bacitracin OINTMENT* 1 applic TOPICAL BID #1 tube DOXYcycline CAP(*) [DOXYcycline 100MG CAP(*)] 100 mg PO BID #13 cap Patient Education Materials: Laceration (ED), Acute Wound Care (ED) Referrals: Porter Barrios MD [Primary Care Provider] - 1 Week Additional Instructions: 1-Please take full course of Antibiotic. 2- If redness and swelling doubles in size after 48 hrs of taking antibiotic and fever develops please go to the ER immediately. 3-Keep wound clean and dry and apply the topical antibiotic as directed 4-Please F/u with your PCP in 1 week days if not improvement 5- Tetanus vaccine give today
[2017-03-20] MEDS ORDERED: DOXYcycline CAP(*) 100 MG PO ONE (20:07)
== END 2017-03-20 20:58 | disposition home or self-care (01) ==
LOC: UCCORT 19:22
DX: S01.311A Laceration without foreign body of right ear, initial encounter (principal); E11.9 Type 2 diabetes mellitus without complications; I10 Essential (primary) hypertension; Z23 Encounter for immunization; Z88.0 Allergy status to penicillin; Z88.5 Allergy status to narcotic agent; W45.8XXA Other foreign body or object entering through skin, initial encounter; Y92.9 Unspecified place or not applicable
CPT/HCPCS: 90471; 90715; 99212; A9270-GY; G0463